=== PATIENT | female | born 1955 | race Caucasian/White ===

== ENCOUNTER 2024-04-06 12:35 | Inpatient (IN) | payer OTHER ==
[~2024-04-06] VITALS: Ht 167.6 cm; Wt 76.9 kg
--- NOTE | 2024-04-06 13:08 | ED.PDOC ---
Musculoskeletal HPI Comments HPI: Poor Historian. 69-year-old female brought in by ambulance from home status post mechanical fall from a standing position. It was a trip and fall. Patient is specifically states she did not have any other trauma or injury to the rest of her body. Patient complains of right hip pain since the fall. Patient denies any pain anywhere else in her body. Patient is not on blood thinners. Patient has history of GERD. Per EMS, patient was noted to have right lower extremity deformity and rotation. She received a total of 200 mics fentanyl prior to arrival. Patient points to her right lateral proximal thigh where her pain is. Past Medcial History: GERD Past Surgical History: Denies any REVIEW OF SYSTEMS: CONSTITUTIONAL: Denies acute: fever, diaphoresis, chills, generalized weakness. HEAD: Denies acute: headache, photophobia Eyes: Denies acute: Double vision, vision loss, eye pain, eye discharge. EARS: Denies acute: tinnitus, hearing loss, ear discharge, ear pain, THROAT: Denies acute: sore throat, swelling, difficulty swallowing , pain with swallowing, change in voice. NECK: Denies acute: neck pain, neck swelling, stiff neck. HEART: Denies acute : chest pain, palpitations, LUNGS: Denies acute: SOB, wheezing, cough, hemoptysis ABDOMEN: Denies acute: abdominal pain, Nausea, Vomiting, diarrhea, melena , hematemesis, hematochezia SKIN: Denies acute: rash, redness, lesions, itchiness. EXTREMITIES: Denies acute: calf pain, numbness, tingling, weakness, Denies acute: Low back pain. Neuro: Denies acute: focal neurological deficit, motor or sensory focal neurological deficit, tremors, seizure like activity, confusion, dizziness, change in mental status, loss of bowel or bladder function, cauda equina like symptoms. : Denies acute: dysuria, hematuria, flank pain, increase in urinary frequency. PSYCH: Denies acute: hallucination, suicidal ideation, homicidal ideation. FEMALE: Denies acute: abnormal vaginal bleeding, foul odor, unusual discharge. PHYSICAL EXAM: General: no acute distress, awake and alert. Head: normocephalic, atraumatic. Neck: supple, trachea is midline, no swelling. Throat: Normal phonation. Eyes:, no erythema, no purulent discharge, no proptosis, no icterus. Heart: regular rate, regular rhythm, no significant murmur appreciated. Lungs: no apparent respiratory distress, Able to speak in full sentences. No wheezing, no rhonchi, no crackles. No stridors Clear to auscultation bilaterally. Abdomen: non tender to palpation, non distended, soft, no guarding, no rebound, + bowel sounds. Neuro: Awake, Alert, oriented to name, self, situation, follows commands GCS=15. Speech is normal. Skin: no petechia, no purpura, no cyanosis, non-pale, not jaundice. Lower extremities: --no - Pitting edema no deformity, no focal swelling, no calf TTP. Decreased range of motion of right lower extremity secondary to right hip pain. Patient is neurovascularly intact in the affected extremity. Pedal pulses palpable. Sensory and motor are present. Makes eye contact. Face: no apparent facial droop. Chief Complaint: Fall Injury Time Seen by MD: 12:54 Reviewed Notes: Nurses Notes, Allergies Allergies: Coded Allergies: NO KNOWN ALLERGIES (Unverified , 04/06/24) Information Source: Patient Mode of Arrival: EMS Location: Right X-Ray, Labs, Meds, VS Vital Signs Date Time Temp Pulse Resp B/P (MAP) Pulse Ox O2 Delivery O2 Flow Rate FiO2 04/06/24 19:20 98.5 86 18 117/70 (86) 100 98.5 04/06/24 19:20 100 Room Air* 0 21 04/06/24 18:11 90 18 115/69 (84) 93 04/06/24 17:56 81 16 142/68 (92) 94 04/06/24 17:52 140/62 04/06/24 16:54 80 18 98 Room Air* 0 21 04/06/24 16:39 80 22 140/80 04/06/24 16:00 98.1 85 17 140/62 (88) 98 98.1 04/06/24 15:17 80 20 122/63 04/06/24 15:00 98.2 85 18 122/63 (82) 97 98.2 04/06/24 12:46 98.9 78 20 139/81 (100) 100 Lab Test 04/06/24 17:15 04/06/24 16:36 04/06/24 13:58 Range/Units Prothrombin Time 10.8 9.3-11.8 sec Prothrombin Time INR 1.02 0.9-1.15 Urine Color Yellow Yellow Urine Clarity Clear Clear Urine pH 6.0 5.0-9.0 Urine Specific [place] 1.021 1.001-1.035 Urine Protein Trace H Negative Urine Ketones Trace Negative Urine Blood Negative Negative /uL Urine Nitrite Negative Negative Urine Bilirubin Negative Negative Urine Urobilinogen Normal Negative mg/dL Urine Leukocyte Esterase Negative Negative /uL Urine RBC 2 0 - 4 /hpf Urine WBC 3 0 - 5 /hpf Urine Squamous Epithelial Cells Few <5 /hpf Urine Bacteria None seen None Seen /hpf Urine Hyaline Casts Few 0 - 2 /lpf Urine Glucose Normal Normal mg/dL White Blood Count 11.2 H 4.4-10.8 10^3/uL Red Blood Count 4.58 4.0-5.20 10^6/uL Hemoglobin 10.6 L 12.2-16.2 g/dL Hematocrit 34.6 L 36.0-46.0 % Mean Corpuscular Volume 75.5 L 80.0-100.0 fL Mean Corpuscular Hemoglobin 23.1 L 28.0-32.0 pg Mean Corpuscular Hemoglobin Concent 30.6 L 32.0-36.0 g/dL Red Cell Distribution Width 18.8 H 11.8-14.3 % Platelet Count 351 140-450 10^3/uL Mean Platelet Volume 7.2 6.9-10.8 fL Neutrophils (%) (Auto) 88.8 H 37.0-80.0 % Lymphocytes (%) (Auto) 5.7 L 10.0-50.0 % Monocytes (%) (Auto) 4.6 0.0-12.0 % Eosinophils (%) (Auto) 0.3 0.0-7.0 % Basophils (%) (Auto) 0.6 0.0-2.0 % Neutrophils # (Auto) 9.9 H 1.6-8.6 10 ^3/uL Lymphocytes # (Auto) 0.6 0.4-5.4 10 ^3/uL Monocytes # (Auto) 0.5 0-1.3 10 ^3/uL Eosinophils # (Auto) 0 0-0.8 10 ^3/uL Basophils # (Auto) 0.1 0-0.2 10 ^3/uL Nucleated Red Blood Cells 0.1 % Sodium Level 141 136-145 mmol/L Potassium Level 3.7 3.5-5.1 mmol/L Chloride Level 109 H 98-107 mmol/L Carbon Dioxide Level 23 20-31 mmol/L Anion Gap 9 5-15 Blood Urea Nitrogen 12 9-23 mg/dL Creatinine 0.72 0.550-1.02 mg/dL Glomerular Filtration Rate Calc 92 >90 mL/min BUN/Creatinine Ratio 16.7 10.0-20.0 Serum Glucose 110 H 74-106 mg/dL Calcium Level 9.6 8.7-10.4 mg/dL Total Bilirubin 0.4 0.2-1.0 mg/dL Aspartate Amino Transferase (AST) 28 13-40 U/L Alanine Aminotransferase (ALT) 31 7-40 U/L Alkaline Phosphatase 115 46-116 U/L Creatine Kinase 327 H 34-145 U/L Total Protein 7.0 5.7-8.2 g/dL Albumin 4.6 3.2-4.8 g/dL Current Medications Medications (Trade) Dose Ordered Sig/Gordon Route Start Time Stop Time Status Last Admin Hydromorphone HCl (Dilaudid Injection) 0.25 mg ONCE ONCE IV 04/06/24 15:00 04/06/24 15:01 DC 04/06/24 15:17 Ondansetron HCl (Zofran) 4 mg ONCE ONCE IM 04/06/24 15:00 04/06/24 15:01 DC 04/06/24 15:16 Fentanyl Citrate 100 mcg ONCE ONCE IV 04/06/24 17:30 04/06/24 17:31 DC 04/06/24 17:52 [place] [address] Ph: [phone] DIAGNOSTIC IMAGING Diagnostic Imaging Report : [id number] Signed PATIENT: LTUHER VILLALTA ACCT: [id number] UNIT: [id number] : 1955 LOC: ER ROOM / BED: / AGE / SEX: 69 / F ADM STATUS: REG ER SERVICE [id number] ORDERING PHYSICIAN: ALISTAIR PITTS DO PROCEDURE(s): ABPL - CT AB PEL WO CON-NO ORAL OR IV REASON: TRAUMA - S/P FALL INJURY ORDER NUMBER(s): [id number], ACCESSION NUMBER(s): [id number] CLINICAL INFORMATION: 69 years old, Female; trauma. Status post fall injury. TECHNIQUE: Axial CT images of the abdomen and pelvis were obtained without IV contrast. Images were obtained with the patient laying on her left side. Coronal and sagittal reformatted images were obtained, reviewed, and stored. Evaluation of the parenchymal organs is limited without IV contrast. Evaluation of the bowel and mesentery is limited without oral contrast. All CT scans at this medical facility are performed using dose modulation techniques as appropriate to a performed exam including the following: Automated exposure control was utilized; adjustment of the MA and/or KV according to patient size; and use of iterative reconstruction technique. CTDIvol = 17.23 mGy DLP = 942.23 mGy-cm COMPARISON: None FINDINGS: Lung bases: Mild atelectasis in the lung bases. Moderate to large hiatal hernia. Liver: Low-attenuation lesion in the anterior aspect of the left hepatic lobe measures up to 2.3 cm in greatest dimension, measuring fluid attenuation, possible cyst, extending adjacent to the fissure of the ligamentum teres. Biliary: No calcified gallstones or biliary ductal dilatation. Spleen: Unremarkable. Pancreas: Grossly unremarkable in its noncontrast enhanced appearance. Adrenal glands: Unremarkable. No mass. Kidneys: No hydronephrosis. No renal or ureteral calculi. Aorta/Vascular: Moderate atherosclerotic calcification. No abdominal aortic aneurysm. Retroperitoneum: No mass or lymphadenopathy. Bowel/mesentery: No small bowel obstruction. No free air or free fluid. Appendix is not visualized. There is colonic diverticulosis with no CT evidence for diverticulitis. Pelvic organs: Grossly unremarkable. Bladder: Unremarkable. No mass. Abdominal wall: No mass or hernia. Bones: Acute, severely comminuted fracture of the right proximal humerus involving the intertrochanteric region. Multilevel chronic appearing compression fractures in the thoracic and lumbar spine, including at T11, L2, and L3. IMPRESSION: 1. Acute, severely comminuted right hip intertrochanteric fracture. 2. Multilevel chronic appearing compression fractures in the thoracolumbar spine. 3. Moderate to large hiatal hernia. 4. Fluid density lesion in the left hepatic lobe, likely cyst. 5. Additional nonacute findings as detailed above ATED BY: GASTON WEST DO DICTATED DATE/TIME: 04/06/241318 SIGNED BY: GASTON WEST DO SIGNED DATE/TIME: 04/06/241318 CC: [address] [id number] Ph: [phone] DIAGNOSTIC IMAGING Diagnostic Imaging Report : [id number] Signed PATIENT: LUTHER CARRERO ACCT: [id number] UNIT: [id number] : 1955 LOC: ER ROOM / BED: / AGE / SEX: 69 / F ADM STATUS: REG ER SERVICE ORDERING PHYSICIAN: DEVIN BRUNO MD PROCEDURE(s): CXR1 - CHEST XRAY 1 VIEW REASON: cad ORDER NUMBER(s): [id number], ACCESSION NUMBER(s): [id number] CHEST RADIOGRAPH Indication: cad Technique: Single frontal view of the chest was obtained Comparison: None Findings/ IMPRESSION: No active cardiopulmonary disease. High density material scattered over the left lower hemithorax and extending into the left upper abdomen. Question whether this is artifact versus densities within the patient. ATED BY: MARCELINO CHAMBERS DO DICTATED DATE/TIME: 04/06/241732 SIGNED BY: MARCELINO CHAMBERS DO SIGNED DATE/TIME: 04/06/241732 CC: Time of 1ST Reevaluation: 13:46 (The case was discussed with the orthopedic on- call team (HPI, physical exam, labs and diagnostic tests that were available at the time of disposition, ED course, treatment plan) on the phone. They recommend admission to the hospital and they will follow in consult. Dr. Bruno) Reevaluation 1ST: Unchanged Patient Education/Counseling: Diagnosis, Treatment Family Education/Counseling: No Family Present Comments Patient presented with the 69-year-old female brought in by ambulance from home status post mechanical fall from a standing position. It was a trip and fall workup was initiated. patient was found with the above mentioned diagnosis. the following medications were ordered: HYDROMORPHONE, ONDANSETRON 4MG, FENTANYL 100MCG the following tests were ordered: LABS, UA, CXR, EKG, CT ABD PEL Patient ED course and VS have been stabilized. Patient has been reassessed in the ED and remained in a stable condition. Pertinent incidental findings were discussed with the patient and/or family. Patient/family voices understanding and is agreeable with plan. Patient has been observed in the ED adequate length of time to insure improvement/stability. Escalation of care considered: Consideration of escalation to observation or admission Patient was ADMITTED to the medicine team for further evaluation and treatment of their presentation. All the reports of any imaging studies that were ordered by myself were reviewed by myself. Departure 1 Departure Time of Disposition: 13:42 Impression: Primary Impression: Hip fracture, right Disposition: 09 ADMITTED INPATIENT Admit to: Tele Condition: Guarded Additional Instructions: [place] [address] Ph: [phone] DIAGNOSTIC IMAGING Diagnostic Imaging Report : [id number] Signed PATIENT: LUTHER VILLALTA ACCT: [id number] UNIT: [id number] : 1955 LOC: ER ROOM / BED: / AGE / SEX: 69 / F ADM STATUS: REG ER SERVICE 1245 ORDERING PHYSICIAN: ALISTAIR PITTS DO PROCEDURE(s): ABPL - CT AB PEL WO CON-NO ORAL OR IV REASON: TRAUMA - S/P FALL INJURY ORDER NUMBER(s): [id number], ACCESSION NUMBER(s): [id number] CLINICAL INFORMATION: 69 years old, Female; trauma. Status post fall injury. TECHNIQUE: Axial CT images of the abdomen and pelvis were obtained without IV contrast. Images were obtained with the patient laying on her left side. Coronal and sagittal reformatted images were obtained, reviewed, and stored. Evaluation of the parenchymal organs is limited without IV contrast. Evaluation of the bowel and mesentery is limited without oral contrast. All CT scans at this medical facility are performed using dose modulation techniques as appropriate to a performed exam including the following: Automated exposure control was utilized; adjustment of the MA and/or KV according to patient size; and use of iterative reconstruction technique. CTDIvol = 17.23 mGy DLP = 942.23 mGy-cm COMPARISON: None FINDINGS: Lung bases: Mild atelectasis in the lung bases. Moderate to large hiatal hernia. Liver: Low-attenuation lesion in the anterior aspect of the left hepatic lobe measures up to 2.3 cm in greatest dimension, measuring fluid attenuation, possible cyst, extending adjacent to the fissure of the ligamentum teres. Biliary: No calcified gallstones or biliary ductal dilatation. Spleen: Unremarkable. Pancreas: Grossly unremarkable in its noncontrast enhanced appearance. Adrenal glands: Unremarkable. No mass. Kidneys: No hydronephrosis. No renal or ureteral calculi. Aorta/Vascular: Moderate atherosclerotic calcification. No abdominal aortic aneurysm. Retroperitoneum: No mass or lymphadenopathy. Bowel/mesentery: No small bowel obstruction. No free air or free fluid. Appendix is not visualized. There is colonic diverticulosis with no CT evidence for diverticulitis. Pelvic organs: Grossly unremarkable. Bladder: Unremarkable. No mass. Abdominal wall: No mass or hernia. Bones: Acute, severely comminuted fracture of the right proximal humerus involving the intertrochanteric region. Multilevel chronic appearing compression fractures in the thoracic and lumbar spine, including at T11, L2, and L3. IMPRESSION: 1. Acute, severely comminuted right hip intertrochanteric fracture. 2. Multilevel chronic appearing compression fractures in the thoracolumbar spine. 3. Moderate to large hiatal hernia. 4. Fluid density lesion in the left hepatic lobe, likely cyst. 5. Additional nonacute findings as detailed above ATED BY: GASTON WEST DO DICTATED DATE/TIME: 04/06/241318 SIGNED BY: AGSTON WEST DO SIGNED DATE/TIME: 04/06/241318 CC: [place] [address] Ph: [phone] DIAGNOSTIC IMAGING Diagnostic Imaging Report : [id number] Signed PATIENT: LUTHER CARRERO ACCT: [id number] UNIT: [id number] : 1955 LOC: ER ROOM / BED: / AGE / SEX: 69 / F ADM STATUS: REG ER SERVICE [id number] ORDERING PHYSICIAN: DEVIN BRUNO MD PROCEDURE(s): CXR1 - CHEST XRAY 1 VIEW REASON: cad ORDER NUMBER(s): [id number], ACCESSION NUMBER(s): [id number] CHEST RADIOGRAPH Indication: cad Technique: Single frontal view of the chest was obtained Comparison: None Findings/ IMPRESSION: No active cardiopulmonary disease. High density material scattered over the left lower hemithorax and extending into the left upper abdomen. Question whether this is artifact versus densities within the patient. ATED BY: MARCELINO CHAMBERS DO DICTATED DATE/TIME: 04/06/241732 SIGNED BY: MARCELINO CHAMBERS DO SIGNED DATE/TIME: 04/06/241732 CC: Discharged With: Self I personally scribed for ALISTAIR PITTS DO ([email or web address]) on 04/06/24 at 22:23. Electronically submitted by Nicolasa Shepherd ([email or web address]). I personally scribed for ALISTAIR PITTS DO ([email or web address]) on 04/06/24 at 22:24. Mariam ctronically submitted by Nicolasa Shepherd ([email or web address]). I personally scribed for ALISTAIR PITTS DO ([email or web address]) on 04/06/24 at 22:25. Electron ically submitted by Nicolasa Shepherd ([email or web address]). I personally scribed for ALISTAIR PITTS DO ([email or web address]) on 04/06/24 at 22:25. Electronically submitted by Nicolasa Shepherd ([email or web address]). ALISTAIR PITTS DO Apr 06, 2024 13:08
--- NOTE | 2024-04-06 13:22 | DVH ---
CLINICAL INFORMATION: 69 years old, Female; trauma. Status post fall injury. TECHNIQUE: Axial CT images of the abdomen and pelvis were obtained without IV contrast. Images were obtained with the patient laying on her left side. Coronal and sagittal reformatted images were obtai rebecca, reviewed, and stored. Evaluation of the parenchymal organs is limited without IV contrast. Evalu ation of the bowel and mesentery is limited without oral contrast. All CT scans at this [facility] are performed using dose modulation techniques as appropriate to a performed exam including the f ollowing: Automated exposure control was utilized; adjustment of the MA and/or KV according to patien t size; and use of iterative reconstruction technique. CTDIvol = 17.23 mGy DLP = 942.23 mGy-cm COMPARISON: None FINDINGS: Lung bases: Mild atelectasis in the lung bases. Moderate to large hiatal hernia. Liver: Low-attenuation lesion in the anterior aspect of the left hepatic lobe measures up to 2.3 cm in greatest dimension, measuring fluid attenuation, possible cyst, extending adjacent to the fissure of the ligamentum teres. Biliary: No calcified gallstones or biliary ductal dilatation. Spleen: Unremarkable. Pancreas: Grossly unremarkable in its noncontrast enhanced appearance. Adrenal glands: Unremarkable. No mass. Kidneys: No hydronephrosis. No renal or ureteral calculi. Aorta/Vascular: Moderate atherosclerotic calcification. No abdominal aortic aneurysm. Retroperitoneum: No mass or lymphadenopathy. Bowel/mesentery: No small bowel obstruction. No free air or free fluid. Appendix is not visualized. T here is colonic diverticulosis with no CT evidence for diverticulitis. Pelvic organs: Grossly unremarkable. Bladder: Unremarkable. No mass. Abdominal wall: No mass or hernia. Bones: Acute, severely comminuted fracture of the right proximal humerus involving the intertrochante blu region. Multilevel chronic appearing compression fractures in the thoracic and lumbar spine, incl uding at T11, L2, and L3. IMPRESSION: 1. Acute, severely comminuted right hip intertrochanteric fracture. 2. Multilevel chronic appearing compression fractures in the thoracolumbar spine. 3. Moderate to large hiatal hernia. 4. Fluid density lesion in the left hepatic lobe, likely cyst. 5. Additional nonacute findings as detailed above
[2024-04-06 14:38] LABS: Alanine Aminotransferase 31 U/L (7-40); Albumin 4.6 g/dL (3.2-4.8); Alkaline Phosphatase 115 U/L (46-116); Anion Gap 9 (5-15); Aspartate Aminotransferase 28 U/L (13-40); BUN/Creatinine Ratio 16.7 (10.0-20.0); Blood Urea Nitrogen 12 mg/dL (9-23); Calcium 9.6 mg/dL (8.7-10.4); Carbon Dioxide 23 mmol/L (20-31); Potassium 3.7 mmol/L (3.5-5.1); Sodium 141 mmol/L (136-145)
[2024-04-06 14:39] LABS: Bilirubin, Total 0.4 mg/dL (0.2-1.0)
[2024-04-06 14:46] LABS: Basophils # (auto) 0.1 10 ^3/uL (0-0.2); Basophils % (auto) 0.6 % (0.0-2.0); Chloride 109 mmol/L (98-107); Creatine Kinase IFCC 327 U/L (34-145); Eosinophils # (auto) 0 10 ^3/uL (0-0.8); Eosinophils % (auto) 0.3 % (0.0-7.0); Glucose 110 mg/dL (74-106); Hematocrit 34.6 % (36.0-46.0); Hemoglobin 10.6 g/dL (12.2-16.2); Lymphocytes # (auto) 0.6 10 ^3/uL (0.4-5.4); Red Cell Distribution Width 18.8 % (11.8-14.3)
[2024-04-06 14:48] LABS: Lymphocytes % (auto) 5.7 % (10.0-50.0); Mean Corpuscular Hemoglobin 23.1 pg (28.0-32.0); Mean Corpuscular Hgb Conc. 30.6 g/dL (32.0-36.0); Mean Corpuscular Volume 75.5 fL (80.0-100.0); Monocytes # (auto) 0.5 10 ^3/uL (0-1.3); Monocytes % (auto) 4.6 % (0.0-12.0); Neutrophils # (auto) 9.9 10 ^3/uL (1.6-8.6); Neutrophils % (auto) 88.8 % (37.0-80.0); Nucleated Red Blood Cells % 0.1 %; Platelet Count (auto) 351 10^3/uL (140-450); Red Blood Cells 4.58 10^6/uL (4.0-5.20); White Blood Cell 11.2 10^3/uL (4.4-10.8)
[2024-04-06] MEDS: ONDANSETRON HCL 4 MG/2 ML VIAL IM ONE (15:16)
[2024-04-06] MEDS: HYDROmorphone HCL 2 MG/ML VL/or syr IV ONE (15:17)
[2024-04-06 16:54] VITALS: PULSE 80; RESP 18; O2SAT 98
[2024-04-06 17:29] LABS: Urine Bacteria None Seen /hpf (None Seen)
--- NOTE | 2024-04-06 17:35 | DVH ---
CHEST RADIOGRAPH Indication: cad Technique: Single frontal view of the chest was obtained Comparison: None Findings/ IMPRESSION: No active cardiopulmonary disease. High density material scattered over the left lower hemithorax an d extending into the left upper abdomen. Question whether this is artifact versus densities within t he patient.
[2024-04-06] MEDS: fentaNYL CITRATE 100 MCG/2 ML VL IV ONE (17:52)
[2024-04-06 17:59] LABS: Urine Blood Negative /uL (Negative); Urine Clarity Clear (Clear); Urine Color Yellow (Yellow); Urine Hyaline Cast FEW /lpf (0 - 2); Urine Protein, UAD TRACE (Negative); Urine Specific Gravity 1.021 (1.001-1.035); Urine Squamous Epithelial Cell FEW /hpf (<5); Urine Urobilinogen Normal (Negative); Urine WBC 3 /hpf (0 - 5)
[2024-04-06 18:17] LABS: INR 1.02 (0.9-1.15); Prothrombin Time 10.8 sec (9.3-11.8)
[2024-04-06 19:20] VITALS: O2SAT 100
[2024-04-06] MEDS: cefTRIAXone 1GM/50ML D5W 50 ML IV ONE (20:30)
[2024-04-06] MEDS ORDERED: ACETAMINOPHEN 325 MG TAB PO PRN (20:30)
[2024-04-06] MEDS ORDERED: DOCUSATE SOD 100 MG CAP PO PRN (20:30)
[2024-04-06] MEDS: SOD CHL 0.45% 1,000 ML IV SCH (20:30)
--- NOTE | 2024-04-06 20:55 | DVHHP2 ---
History of Present Illness Reason for Visit: Hip fracture, right History of Present Illness The patient is a 69 years old female with past medical history of GERD presented to [facility] ED for evaluation of mechanical fall injury. Patient reports she tripped and fall at home, complaining of right hip pain, rating 7/10 numeric scale, getting worse that prompted this visit. Patient was seen and evaluated in the ED, laboratory data shows WBC 11.2, hemoglobin 10.6, hematocrit 34.6, platelets 351, sodium 141, potassium 3.7, BUN 12, creatinine 0.72, GFR 92, glucose 110, CK 327, blood pressure 117/70, heart rate 86, temperature 98.5 F, O2 saturation 99% on oxygen. Abdomen/pelvis CT revealing acute, severe comminuted right hip intratrochanteric fracture. Patient was given IV Dilaudid 0.25 mg x 1, please see medication orders section in the computer. On my assessment, patient denies chest pain, no headache, no dizziness, no diaphoresis, no loss of consciousness, no shortness of breath, no nausea, no vomiting, fever, chills. Patient was admitted for further evaluation and medical management. Past Medical History GERD Past Surgical History Denies all surgeries Family History Reviewed, noncontributory to the management of this case. Past Social History The patient lives at home, denies smoking, alcohol or illicit drugs abuse. Review of Systems Constitutional: Yes: Weakness; No: Fever, Chills, Sweats, Malaise, Other Eyes: No: Pain, Vision change, Conjunctivae inflammation, Eyelid inflammation, Other, Redness ENT: No: Ear pain, Ear discharge, Nose pain, Nose discharge, Nose congestion, Mouth pain, Mouth swelling, Throat pain, Throat swelling, Other Respiratory: No: Cough, Dry, Shortness of breath, SOB with excertion, Wheezing, Hemoptysis, Pleuritic Pain, Sputum, Wheezing, Other Cardiovascular: No: Chest Pain, Palpitations, Orthopnea, Paroxysmal Noc. Dyspnea, Edema, Lt Headedness, Other Gastrointestinal: No: Nausea, Vomiting, Abdominal Pain, Diarrhea, Constipation, Melena, Hematochezia, Other Genitourinary: No Dysuria, No Frequency, No Incontinence, No Hematuria, No Retention, No Other Musculoskeletal: other (Right hip pain), back pain; No: neck pain, shoulder pain, arm pain, hand pain, leg pain, foot pain Skin: No: Rash, Lesions, Jaundice, Bruising, Other Neurological: No: Weakness, Numbness, Incoordination, Change in speech, Confusion, Seizures, Other Allergies: Coded Allergies: NO KNOWN ALLERGIES (Unverified , 04/06/24) Medications Current Medications Medications Dose Ordered Sig/Gordon Route Start Time Stop Time Status Last Admin Dose Admin Ceftriaxone Sodium 50 ml @ 100 mls/hr DAILY@09 IV 04/07/24 09:00 UNV Acetaminophen/ Hydrocodone Bitart 1 tab Q4HP PRN PO 04/06/24 20:30 UNV Ondansetron HCl 4 mg Q4HP PRN IV 04/06/24 20:30 UNV Docusate Sodium 100 mg BIDPRN PRN PO 04/06/24 20:30 UNV Enoxaparin Sodium 40 mg DAILY SC 04/07/24 10:00 UNV Acetaminophen 650 mg Q6HP PRN PO 04/06/24 20:30 UNV Morphine Sulfate 2 mg Q4HPRN PRN IV 04/06/24 20:30 UNV Sodium Chloride 1,000 ml @ 75 mls/hr [id number] IV 04/06/24 20:30 UNV Exam Vital Signs Vital Signs Date Time Temp Pulse Resp B/P (MAP) Pulse Ox O2 Delivery O2 Flow Rate FiO2 04/06/24 19:20 98.5 86 18 117/70 (86) 100 98.5 04/06/24 19:20 Room Air* 0 21 General Appearance: Alert, Oriented X3, Cooperative, No acute distress HEENT: Atraumatic, PERRLA, EOMI, Mucous membr. moist/pink Respiratory: Clear to auscultation, Normal air movement Cardiovascular: Regular rate, Normal S1, Normal S2, No murmurs Abdominal: Normal bowel sounds, Soft, No tenderness, No hepatospenomegaly, No masses Extremities: No clubbing, No cyanosis, No edema, Normal pulses, Other (Right hip tenderness) Skin: No rashes, No breakdown, No significant lesion Neuro: Normal speech, Normal tone, Sensation intact, Cranial nerves 3-12 NL, Reflexes 2+, Other (Generalized weakness) Psych/Mental Status: Mental status NL, Mood NL Labs/Xrays Labs Test 04/06/24 17:15 04/06/24 16:36 04/06/24 13:58 Range/Units Prothrombin Time 10.8 9.3-11.8 sec Prothrombin Time INR 1.02 0.9-1.15 Urine Color Yellow Yellow Urine Clarity Clear Clear Urine pH 6.0 5.0-9.0 Urine Specific [place] 1.021 1.001-1.035 Urine Protein Trace H Negative Urine Ketones Trace Negative Urine Blood Negative Negative /uL Urine Nitrite Negative Negative Urine Bilirubin Negative Negative Urine Urobilinogen Normal Negative mg/dL Urine Leukocyte Esterase Negative Negative /uL Urine RBC 2 0 - 4 /hpf Urine WBC 3 0 - 5 /hpf Urine Squamous Epithelial Cells Few <5 /hpf Urine Bacteria None seen None Seen /hpf Urine Hyaline Casts Few 0 - 2 /lpf Urine Glucose Normal Normal mg/dL White Blood Count 11.2 H 4.4-10.8 10^3/uL Red Blood Count 4.58 4.0-5.20 10^6/uL Hemoglobin 10.6 L 12.2-16.2 g/dL Hematocrit 34.6 L 36.0-46.0 % Mean Corpuscular Volume 75.5 L 80.0-100.0 fL Mean Corpuscular Hemoglobin 23.1 L 28.0-32.0 pg Mean Corpuscular Hemoglobin Concent 30.6 L 32.0-36.0 g/dL Red Cell Distribution Width 18.8 H 11.8-14.3 % Platelet Count 351 140-450 10^3/uL Mean Platelet Volume 7.2 6.9-10.8 fL Neutrophils (%) (Auto) 88.8 H 37.0-80.0 % Lymphocytes (%) (Auto) 5.7 L 10.0-50.0 % Monocytes (%) (Auto) 4.6 0.0-12.0 % Eosinophils (%) (Auto) 0.3 0.0-7.0 % Basophils (%) (Auto) 0.6 0.0-2.0 % Neutrophils # (Auto) 9.9 H 1.6-8.6 10 ^3/uL Lymphocytes # (Auto) 0.6 0.4-5.4 10 ^3/uL Monocytes # (Auto) 0.5 0-1.3 10 ^3/uL Eosinophils # (Auto) 0 0-0.8 10 ^3/uL Basophils # (Auto) 0.1 0-0.2 10 ^3/uL Nucleated Red Blood Cells 0.1 % Sodium Level 141 136-145 mmol/L Potassium Level 3.7 3.5-5.1 mmol/L Chloride Level 109 H 98-107 mmol/L Carbon Dioxide Level 23 20-31 mmol/L Anion Gap 9 5-15 Blood Urea Nitrogen 12 9-23 mg/dL Creatinine 0.72 0.550-1.02 mg/dL Glomerular Filtration Rate Calc 92 >90 mL/min BUN/Creatinine Ratio 16.7 10.0-20.0 Serum Glucose 110 H 74-106 mg/dL Calcium Level 9.6 8.7-10.4 mg/dL Total Bilirubin 0.4 0.2-1.0 mg/dL Aspartate Amino Transferase (AST) 28 13-40 U/L Alanine Aminotransferase (ALT) 31 7-40 U/L Alkaline Phosphatase 115 46-116 U/L Creatine Kinase 327 H 34-145 U/L Total Protein 7.0 5.7-8.2 g/dL Albumin 4.6 3.2-4.8 g/dL PATIENT: LUTHER VILLALTA ACCT: [id number] UNIT: [id number] : 1955 LOC: ER ROOM / BED: / AGE / SEX: 69 / F ADM STATUS: REG ER SERVICE 1245 ORDERING PHYSICIAN: ALISTAIR PITTS DO PROCEDURE(s): ABPL - CT AB PEL WO CON-NO ORAL OR IV REASON: TRAUMA - S/P FALL INJURY ORDER NUMBER(s): [id number], ACCESSION NUMBER(s): [id number] CLINICAL INFORMATION: 69 years old, Female; trauma. Status post fall injury. TECHNIQUE: Axial CT images of the abdomen and pelvis were obtained without IV contrast. Images were obtained with the patient laying on her left side. Coronal and sagittal reformatted images were obtained, reviewed, and stored. Evaluation of the parenchymal organs is limited without IV contrast. Evaluation of the bowel and mesentery is limited without oral contrast. All CT scans at this medical facility are performed using dose modulation techniques as appropriate to a performed exam including the following: Automated exposure control was utilized; adjustment of the MA and/or KV according to patient size; and use of iterative reconstruction technique. CTDIvol = 17.23 mGy DLP = 942.23 mGy-cm COMPARISON: None FINDINGS: Lung bases: Mild atelectasis in the lung bases. Moderate to large hiatal hernia. Liver: Low-attenuation lesion in the anterior aspect of the left hepatic lobe measures up to 2.3 cm in greatest dimension, measuring fluid attenuation, possible cyst, extending adjacent to the fissure of the ligamentum teres. Biliary: No calcified gallstones or biliary ductal dilatation. Spleen: Unremarkable. Pancreas: Grossly unremarkable in its noncontrast enhanced appearance. Adrenal glands: Unremarkable. No mass. Kidneys: No hydronephrosis. No renal or ureteral calculi. Aorta/Vascular: Moderate atherosclerotic calcification. No abdominal aortic aneurysm. Retroperitoneum: No mass or lymphadenopathy. Bowel/mesentery: No small bowel obstruction. No free air or free fluid. Appendix is not visualized. There is colonic diverticulosis with no CT evidence for dive rticulitis. Pelvic organs: Grossly unremarkable. Bladder: Unremarkable. No mass. Abdominal wall: No mass or hernia. Bones: Acute, severely comminuted fracture of the right proximal humerus involving the intertrochanteric region. Multilevel chronic appearing compression fractures in the thoracic and lumbar spine, including at T11, L2, and L3. IMPRESSION: 1. Acute, severely comminuted right hip intertrochanteric fracture. 2. Multilevel chronic appearing compression fractures in the thoracolumbar spine. 3. Moderate to large hiatal hernia. 4. Fluid density lesion in the left hepatic lobe, likely cyst. 5. Additional nonacute findings as detailed above ORDERING PHYSICIAN: DEVIN BRUNO MD PROCEDURE(s): CXR1 - CHEST XRAY 1 VIEW REASON: cad ORDER NUMBER(s): [id number], ACCESSION NUMBER(s): [id number] CHEST RADIOGRAPH Indication: cad Technique: Single frontal view of the chest was obtained Comparison: None Findings/ IMPRESSION: No active cardiopulmonary disease. High density material scattered over the left lower hemithorax and extending into the left upper abdomen. Question whether this is artifact versus densities within the patient. Assessment/Plan Assessment/Plan Fall with injury Hip fracture, right Right hip pain Generalized weakness Leukocytosis, unspecified Plan 1. Admit to telemetry unit 2. Breathing treatment 3. Pain control management 4. IV antibiotic management 5. Management of fluids and electrolytes 6. Consultation for orthopedic surgery 7. Diagnostic test abdomen/pelvis CT 8. DVT prophylaxis-on Lovenox 9. Repeat labs CBC, CMP in a.m. 10. Home medication reviewed and reconciled 11. Continue with current medical management 12. Treatment plan discussed with patient and RN. Patient verbalized understanding. Plan discussed with: Patient, Other (RN) My Orders Orders - YUAN CARRINGTON DNP Procedure Category Date Status Time Ceftriaxone 1gm/50ml PHA 04/07/24 Logged D5w (Rocephin) 09:00 Ceftriaxone 1gm/50ml PHA 04/06/24 Logged D5w (Rocephin) 20:30 Allergies TRINO 04/06/24 In Process 20:28 Code Status CODE 04/06/24 Transmitted 20:28 Oxygen Per Hour RT 04/06/24 Transmitted 20:28 Hydrocodone-Acet PHA 04/06/24 Logged 5/325mg Tab ([place] 20:30 Ondansetron Hcl PHA 04/06/24 Logged (Zofran) 20:30 Docusate Sodium PHA 04/06/24 Logged Capsule (Colace 20:30 Enoxaparin Sodium PHA 04/07/24 Logged (Lovenox) 10:00 Fall Risk Precautions TRINO 04/06/[address] 20:28 Complete Blood Count LAB 04/07/24 Verified 04:00 Comprehensive LAB 04/07/24 Verified Metabolic Panel 04:00 Cardiac DIET 04/07/24 Transmitted Diet-2gna,Lofat,Lochol Breakfast Condition: Serious TRINO 04/06/24 In Process 20:28 Acetaminophen Tablet PHA 04/06/24 Logged (Tylenol Tablet) 20:30 Morphine Sulfate PHA 04/06/24 Logged Injection 20:30 Sequential TRINO 04/06/24 In Process Compression Device Sod Chl 0.45% (Sodium PHA 04/06/24 Logged Chloride 0.45% Via 20:30 Admit ADMIT 04/06/24 Verified 20:54 Nitroglycerin PHA 04/06/24 Verified Sublingual (Ntrostat 21:00 Morphine Sulfate PHA 04/06/24 Verified Injection 21:00 Notify Of Changes TRINO 04/06/24 Verified From Base 20:54 Inside Sales Account Manager For TRINO 04/06/24 Verified 24 Hours 20:54 Emergency Dysrhythmia TRINO 04/06/24 Verified Protocol 20:54 Rhythm Strips Once TRINO 04/06/24 Verified Every Shift 20:54 Oxygen By Nasal RT 04/06/24 Verified Cannula 20:54 Problem List: (1) Fall with injury (2) Hip fracture, right (3) Right hip pain (4) Generalized weakness (5) Leukocytosis, unspecified Date of Service: Apr 06, 2024 Billing Provider: YUAN CARRINGTON DNP Common Visit Codes: [id number] INP/OBS CARE (HIGH) YUAN CARRINGTON DNP Apr 06, 2024 20:55
[2024-04-06] MEDS ORDERED: MORPHINE SULFATE INJ 2 MG/ml SYRG IV PRN (21:00)
[2024-04-06] MEDS ORDERED: NITROGLYCERIN 0.4 MG SL TAB SL PRN (21:00)
[2024-04-06] MEDS: MORPHINE SULFATE INJ 2 MG/ml SYRG IV PRN (22:28)
[2024-04-07] VITALS (9 sets, daily range): BP systolic 117–145; BP diastolic 60–77; PULSE 65–95; RESP 16–22; TEMP 97.9–98.6; O2SAT 92–100
[2024-04-07] MEDS: ONDANSETRON HCL 4 MG/2 ML VIAL IV PRN (03:51)
[2024-04-07 08:32] LABS: Basophils # (auto) 0 10 ^3/uL (0-0.2); Eosinophils # (auto) 0.1 10 ^3/uL (0-0.8); Lymphocytes # (auto) 0.8 10 ^3/uL (0.4-5.4); Monocytes # (auto) 0.6 10 ^3/uL (0-1.3); Platelet Count (auto) 273 10^3/uL (140-450); White Blood Cell 5.9 10^3/uL (4.4-10.8)
[2024-04-07 08:34] LABS: Basophils % (auto) 0.6 % (0.0-2.0); Eosinophils % (auto) 1.7 % (0.0-7.0); Hematocrit 32.2 % (36.0-46.0); Hemoglobin 10.1 g/dL (12.2-16.2); Lymphocytes % (auto) 13.7 % (10.0-50.0); Mean Corpuscular Hemoglobin 23.3 pg (28.0-32.0); Mean Corpuscular Hgb Conc. 31.4 g/dL (32.0-36.0); Mean Corpuscular Volume 74.3 fL (80.0-100.0); Monocytes % (auto) 10.2 % (0.0-12.0); Neutrophils # (auto) 4.3 10 ^3/uL (1.6-8.6); Neutrophils % (auto) 73.8 % (37.0-80.0); Red Blood Cells 4.34 10^6/uL (4.0-5.20); Red Cell Distribution Width 18.7 % (11.8-14.3)
[2024-04-07 08:41] LABS: Alanine Aminotransferase 25 U/L (7-40); Albumin 4.2 g/dL (3.2-4.8); Alkaline Phosphatase 115 U/L (46-116); Anion Gap 6 (5-15); Aspartate Aminotransferase 21 U/L (13-40); BUN/Creatinine Ratio 15.1 (10.0-20.0); Blood Urea Nitrogen 11 mg/dL (9-23); Calcium 9.4 mg/dL (8.7-10.4); Carbon Dioxide 27 mmol/L (20-31); Chloride 105 mmol/L (98-107); Potassium 3.8 mmol/L (3.5-5.1); Sodium 138 mmol/L (136-145)
[2024-04-07 08:42] LABS: Bilirubin, Total 0.6 mg/dL (0.2-1.0); Total Protein 6.5 g/dL (5.7-8.2)
[2024-04-07 08:46] LABS: Glucose 109 mg/dL (74-106)
[2024-04-07] MEDS: cefTRIAXone 1GM/50ML D5W 50 ML IV SCH (09:48)
[2024-04-07] MEDS: ENOXAPARIN SOD 40 MG/0.4 ML SYRINGE SC SCH (09:57)
--- NOTE | 2024-04-07 12:36 | DVHINCON2 ---
Date Seen: Apr 07, 2024 Referring Physician MD Donny Reason for Consultation Cardiac risk stratification History of Present Illness This is a 69-year-old female patient who presents to emergency room status post mechanical fall at home. The patient reports that she was outside with her dog when suddenly her dog became hyperactive causing her to lose her balance and fall. She began experiencing excruciating pain to her right hip. She denies any loss of consciousness hitting her head. She was brought to the emergency room for further evaluation. Imaging has revealed an acute severely comminuted right hip intertrochanteric fracture. Cardiology has now been consulted for cardiac risk stratification. No twelve lead electrocardiogram found in patient's chart. Twelve lead electrocardiogram done at time of assessment reveals normal sinus rhythm with PAC no significant ST segment changes. Significant past medical history includes CVA without residual deficits, kidney stones, and GERD. The patient denies any previous cardiac history. Past Medical History Past medical history reviewed. No other significant than mentioned above. Past Surgical History Denies all previous surgeries Family History Family history reviewed. Social History Denies the use of tobacco, alcohol or illicit drugs. Allergies: Coded Allergies: NO KNOWN ALLERGIES (Unverified , 04/06/24) Home Meds Unable to Obtain Active Prescriptions or Reported Meds Home Meds Home medications reviewed. Current Medications Current Medications Medications (Trade) Dose Ordered Sig/Gordon Route PRN Reason Start Time Stop Time Status Last Admin Ceftriaxone Sodium 50 ml @ 100 mls/hr DAILY@09 IV 04/07/24 09:00 04/07/24 09:48 Acetaminophen/ Hydrocodone Bitart (Artemus 5/325MG Tab) 1 tab Q4HP PRN PO MODERATE PAIN (4-6 PAIN SCALE) 04/06/24 20:30 Ondansetron HCl (Zofran) 4 mg Q4HP PRN IV NAUSEA / VOMITING 04/06/24 20:30 04/07/24 03:51 Docusate Sodium (Colace Capsule) 100 mg BIDPRN PRN PO FOR CONSTIPATION 04/06/24 20:30 Enoxaparin Sodium (Lovenox) 40 mg DAILY SC 04/07/24 10:00 Acetaminophen (Tylenol Tablet) 650 mg Q6HP PRN PO PAIN SCALE 1-3 OR TEMP>100.4 04/06/24 20:30 Morphine Sulfate 2 mg Q4HPRN PRN IV SEVERE PAIN (7-10 PAIN SCALE) 04/06/24 20:30 04/07/24 09:51 Sodium Chloride 1,000 ml @ 75 mls/hr [id number] IV 04/06/24 20:30 04/06/24 20:30 Nitroglycerin (Ntrostat Sublingual) 0.4 mg Q5MINP PRN SL FOR CHEST PAIN 04/06/24 21:00 Morphine Sulfate 2 mg Q30M PRN IV FOR CHEST PAIN 04/06/24 21:00 Review of Systems Constitutional: No symptom reported Ears, Nose, & Throat: No symptom reported Eyes: No symptom reported Neurological: No symptoms reported Pulmonary/Respiratory: No symptoms reported Cardiovascular: No symptom reported Gastrointestinal: No symptom reported Genitourinary: No symptom reported Musculoskeletal: Right hip pain Skin: No symptom reported Psychiatric: No symptom reported Endocrine: No symptom reported Hematologic/Lymphatic: No symptom reported Vital Signs Vital Signs Date Time Temp Pulse Resp B/P (MAP) Pulse Ox O2 Delivery O2 Flow Rate FiO2 04/07/24 09:51 65 18 126/69 04/07/24 09:00 97.9 97 97.9 04/07/24 08:00 Nasal Cannula* 2 28 Physical Exam General Appearance: Cooperative. Well-developed. Well-nourished. No acute distress. Pulmonary/Respiratory: Clear, bilateral breaths sounds. Cardiovascular/Chest: Regular rate and rhythm. Peripheral Pulses: 2+ Radial (R). 2+ Radial (L). 2+ Pedal (R). 2+ Pedal (L) Abdominal Exam: Normal bowel sounds. Ankle Exam: Negative ankle edema Lower extremities: Negative lower extremity edema Neuro/Mental Status: A/OX4, coherent. Thoughts/Psych: Normal thought pattern. Appropriate mood and affect. Good judgment and insight. Appearance: No acute distress. Skin Exam: Normal inspection. Normal color. Warm and dry. Labs/Diagnostic Data Labs Test 04/07/24 08:09 04/06/24 17:15 04/06/24 16:36 04/06/24 13:58 Range/Units White Blood Count 5.9 # 4.4-10.8 10^3/uL Red Blood Count 4.34 4.0-5.20 10^6/uL Hemoglobin 10.1 L 12.2-16.2 g/dL Hematocrit 32.2 L 36.0-46.0 % Mean Corpuscular Volume 74.3 L 80.0-100.0 fL Mean Corpuscular Hemoglobin 23.3 L 28.0-32.0 pg Mean Corpuscular Hemoglobin Concent 31.4 L 32.0-36.0 g/dL Red Cell Distribution Width 18.7 H 11.8-14.3 % Platelet Count 273 140-450 10^3/uL Mean Platelet Volume 6.8 L 6.9-10.8 fL Neutrophils (%) (Auto) 73.8 37.0-80.0 % Lymphocytes (%) (Auto) 13.7 10.0-50.0 % Monocytes (%) (Auto) 10.2 0.0-12.0 % Eosinophils (%) (Auto) 1.7 0.0-7.0 % Basophils (%) (Auto) 0.6 0.0-2.0 % Neutrophils # (Auto) 4.3 1.6-8.6 10 ^3/uL Lymphocytes # (Auto) 0.8 0.4-5.4 10 ^3/uL Monocytes # (Auto) 0.6 0-1.3 10 ^3/uL Eosinophils # (Auto) 0.1 0-0.8 10 ^3/uL Basophils # (Auto) 0 0-0.2 10 ^3/uL Nucleated Red Blood Cells 0.0 % Sodium Level 138 136-145 mmol/L Potassium Level 3.8 3.5-5.1 mmol/L Chloride Level 105 98-107 mmol/L Carbon Dioxide Level 27 20-31 mmol/L Anion Gap 6 5-15 Blood Urea Nitrogen 11 9-23 mg/dL Creatinine 0.73 0.550-1.02 mg/dL Glomerular Filtration Rate Calc 90 >90 mL/min BUN/Creatinine Ratio 15.1 10.0-20.0 Serum Glucose 109 H 74-106 mg/dL Calcium Level 9.4 8.7-10.4 mg/dL Total Bilirubin 0.6 0.2-1.0 mg/dL Aspartate Amino Transferase (AST) 21 13-40 U/L Alanine Aminotransferase (ALT) 25 7-40 U/L Alkaline Phosphatase 115 46-116 U/L Total Protein 6.5 5.7-8.2 g/dL Albumin 4.2 3.2-4.8 g/dL Prothrombin Time 10.8 9.3-11.8 sec Prothrombin Time INR 1.02 0.9-1.15 Urine Color Yellow Yellow Urine Clarity Clear Clear Urine pH 6.0 5.0-9.0 Urine Specific [place] 1.021 1.001-1.035 Urine Protein Trace H Negative Urine Ketones Trace Negative Urine Blood Negative Negative /uL Urine Nitrite Negative Negative Urine Bilirubin Negative Negative Urine Urobilinogen Normal Negative mg/dL Urine Leukocyte Esterase Negative Negative /uL Urine RBC 2 0 - 4 /hpf Urine WBC 3 0 - 5 /hpf Urine Squamous Epithelial Cells Few <5 /hpf Urine Bacteria None seen None Seen /hpf Urine Hyaline Casts Few 0 - 2 /lpf Urine Glucose Normal Normal mg/dL Creatine Kinase 327 H 34-145 U/L Assessment Preprocedural cardiovascular examination Acute severely comminuted right hip intertrochanteric fracture History of CVA without residual deficit GERD Plan/Recommendation We will continue with the following plan/recommendations (Dr. Diamond): Transthoracic echocardiogram reveals normal left ventricle size with EF 55-60% and normal wall motion. Chest x-ray shows no active cardiopulmonary disease. Revised cardiac risk index (Josh criteria): 1 point (6.0% risk of major cardiac event). The patient has no cardiac contraindications to proceed with procedure at this time. Cardiac symptoms have been ruled out. There is no underlying history of congestive heart failure, coronary artery disease, or equivalent of cardiac symptoms. Prior to admission, the patient reports a good functional capacity. Per Cardiology standpoint, the patient is at an acceptable risk for moderate risk surgery. There is no additional cardiac workup indicated prior to surgery. Thank you for allowing us to care for this patient. Please call with any questions or concerns. Critical care time spent: 39 minutes This medical document was created using an electronic medical record system with voice recognition software and computerized dictation system. Although this document has been carefully reviewed, there might still be some phonetic and typographical errors. Occasional wrong-word or ``sound-alike substitutions may have occurred due to the inherent limitations of voice recognition software. These areas are purely typographical due to imperfections of the software programs and do not reflect any compromise in the patient's medical care. Please read the chart carefully and recognize, using context, where these substi tutions have occurred. Plan discussed with: Patient Date of Service: Apr 07, 2024 Billing Provider: JENNY BERMAN Cardiology Common Codes: [id number] INP/OBS CARE (High) Cardiology Consultation Codes: [id number] CONSULT <45MIN JENNY BERMAN Apr 07, 2024 12:36
--- NOTE | 2024-04-07 15:40 | DVHSR ---
APPROVED REPORT EXAM: Two-dimensional and M-mode echocardiogram with Doppler and color Doppler. Blood Pressure: 117/60 mmHg INDICATION CAD RISK FACTORS Height: 5'6", Weight: 167 DIMENSIONS LVDd3.9 (3.8-5.7cm)LA (2D)4.9 (1.9-4.0cm)Aortic Root3.2 (2.0-3.7cm) LVDs2.8 (2.5-4.0cm)LA (MM) (1.9-4.0cm)Aortic Cusp Exc1.6 (1.5-2.0cm) EF (%) 55.0 (55-70%)Rt. Atrium4.9 (1.9-4.0cm)Asc. Aorta cm IVSd0.9 (0.7-1.1cm)RV (D) (1.8-2.4cm) PWd0.9 (0.7-1.1cm) Mitral Valve MitralMitral Stenosis E wave0.94m/sMV Mean GR.mmHg A wave1.25m/sMV Peak GR.mmHg E/A ratio0.82D MVAcm2 DECEL [id number] 1/2 Timems Aortic Valve Aortic ValveAortic Stenosis V10.94m/Sally Mean GR.7mmHg V21.83m/Sally Peak GR.13mmHg LVOT Diameter2.0 (1.8-2.4cm)Doppler AVA1.61cm2 Pulmonic Valve V21.49m/s Tricuspid Valve TR Velocity2.39m/s [id number] LEFT VENTRICLE The left ventricle is normal size. There is normal left ventricular wall thickness. The left ventricle is normal in structure and function. The Ejection Fraction is 55-60%. Normal diastolic function. Normal wall motion. RIGHT VENTRICLE The right ventricle is normal size. The right ventricular systolic function is normal. ATRIA The left atrium is mildly dilated. The right atrium size is normal. MITRAL VALVE The mitral valve is normal in structure and function. Mitral regurgitation is trace to mild. PULMONIC VALVE The pulmonic valve is normal in structure and function. There is trace pulmonic valvular regurgitation. TRICUSPID VALVE The tricuspid valve is grossly normal. There is trace to mild tricuspid regurgitation. AORTIC VALVE The aortic valve is trileaflet. The aortic valve opens well. No aortic regurgitation is present. No evidence of aortic valve stenosis. GREAT VESSELS The aortic root is normal size. PERICARDIAL EFFUSION The pericardium appears normal. There is no pleural effusion. Other Information Technically limited study due to body habitus, patient lying flat. Conclusion The left ventricle is normal size. There is normal left ventricular wall thickness. The left ventricl e is normal in structure and function, Ejection Fraction is 55-60%. Normal wall motion. Normal diast olic function The right ventricular systolic function is normal. The left atrium is mildly dilated. No significant valvular abnormalities. No pericardial effusion.
[2024-04-07] MEDS: PANTOPRAZOLE 40 MG/10 ML VIAL INJ IV ONE (18:09)
--- NOTE | 2024-04-07 23:47 | DVHPN2 ---
Subjective Update 04/07 patient continues to have mild pain, she was more comfortable staying immobilized bed. We will continue p.r.n. analgesia Reviewed: H&P Changes from previous H/P or p: No Changes General: Per HPI Objective Vitals Vital Signs Date Time Temp Pulse Resp B/P (MAP) Pulse Ox O2 Delivery O2 Flow Rate FiO2 04/07/24 21:00 98.0 95 18 119/66 (83) 99 98.0 04/07/24 20:00 Nasal Cannula* 2 28 Intake/Output Intake and Output 04/07/24 07:00 Intake Total 0 ml Output Total 500 ml Balance -500 ml Intake Oral 0 ml Output Urine Total 500 ml Exam GEN: Healthy appearing, well-developed, mild distress HEENT: NC/AT; MMM. CV: RRR, no m/r/g. LUNGS bibasilar rales ABD: Soft, NT/ND, NBS, no masses or organomegaly. EXT: Significant pain at palpation of right GT region, decreased and painful range of motion of right leg/right hip NEURO: Ambulating with no limitations. No focal deficits. Medications Current Medications Medications Dose Ordered Sig/Gordon Route Start Time Stop Time Status Last Admin Dose Admin Ceftriaxone Sodium 50 ml @ 100 mls/hr DAILY@09 IV 04/07/24 09:00 04/07/24 09:48 100 MLS/HR Acetaminophen/ Hydrocodone Bitart 1 tab Q4HP PRN PO 04/06/24 20:30 Ondansetron HCl 4 mg Q4HP PRN IV 04/06/24 20:30 04/07/24 03:51 4 MG Docusate Sodium 100 mg BIDPRN PRN PO 04/06/24 20:30 Enoxaparin Sodium 40 mg DAILY SC 04/07/24 10:00 Acetaminophen 650 mg Q6HP PRN PO 04/06/24 20:30 Morphine Sulfate 2 mg Q4HPRN PRN IV 04/06/24 20:30 04/07/24 16:00 2 MG Sodium Chloride 1,000 ml @ 75 mls/hr [id number] IV 04/06/24 20:30 04/07/24 18:12 75 MLS/HR Nitroglycerin 0.4 mg Q5MINP PRN SL 04/06/24 21:00 Morphine Sulfate 2 mg Q30M PRN IV 04/06/24 21:00 Pantoprazole Sodium 40 mg DAILY IV 04/08/24 10:00 Laboratory Results Laboratory Tests 04/07/24 08:09 Chemistry Test 04/07/24 08:09 Albumin 4.2 g/dL (3.2-4.8) Calcium Level 9.4 mg/dL (8.7-10.4) Total Protein 6.5 g/dL (5.7-8.2) LFT Test 04/07/24 08:09 Alanine Aminotransferase (ALT) 25 U/L (7-40) Alkaline Phosphatase 115 U/L (46-116) Aspartate Amino Transferase (AST) 21 U/L (13-40) Total Bilirubin 0.6 mg/dL (0.2-1.0) Urinalysis Test 04/06/24 16:36 Urine Color Yellow (Yellow) Urine Clarity Clear (Clear) Urine pH 6.0 (5.0-9.0) Urine Specific [place] 1.021 (1.001-1.035) Urine Protein Trace (Negative) H Urine Ketones Trace (Negative) Urine Blood Negative /uL (Negative) Urine Nitrite Negative (Negative) Urine Bilirubin Negative (Negative) Urine Urobilinogen Normal mg/dL (Negative) Urine Leukocyte Esterase Negative /uL (Negative) Urine RBC 2 /hpf (0 - 4) Urine WBC 3 /hpf (0 - 5) Urine Squamous Epithelial Cells Few /hpf (<5) Urine Bacteria None seen /hpf (None Seen) Urine Hyaline Casts Few /lpf (0 - 2) Urine Glucose Normal mg/dL (Normal) Labs and/or images reviewed: Labs reviewed by me, Image(s) reviewed by me Assessment/Plan Assessment/Plan Update 04/07 patient continues to have mild pain, she was more comfortable staying immobilized bed. We will continue p.r.n. analgesia #comminuted right hip intertrochanteric fracture #compression fractures in the thoracolumbar spine - patient with acute full from interacting with her dog - patient presenting with right-sided flank/hip pain, CT abdomen showing fracture in right hip - consulted ortho, NPO midnight with plans surgery for Saturday 04/08 -pain control p.r.n. -DVT prophylaxis, PT after surgery. #large hiatal hernia. - f/u surgery outpatient #left hepatic lobe, likely cyst Diet regular DVT prophylaxis Lovenox GI prophylaxis Protonix IV daily Med surge Full code Plan discussed with: Patient My Orders Orders - LISA SUMMERS MD Procedure Category Date Status Time Pantoprazole PHA 04/08/24 In Process (Protonix) 10:00 Date of Service: Apr 07, 2024 Billing Provider: LISA SUMMERS MD Common Visit Codes: [id number] INP/OBS CARE(HIGH) LISA SUMMERS MD Apr 07, 2024 23:47
[2024-04-08] VITALS (8 sets, daily range): BP systolic 114–149; BP diastolic 65–87; PULSE 74–99; RESP 17–20; TEMP 97.7–98.8; O2SAT 94–99
[2024-04-08 07:46] LABS: Basophils # (auto) 0.1 10 ^3/uL (0-0.2); Basophils % (auto) 0.7 % (0.0-2.0); Eosinophils # (auto) 0.1 10 ^3/uL (0-0.8); Eosinophils % (auto) 1.8 % (0.0-7.0); Hematocrit 30.7 % (36.0-46.0); Lymphocytes % (auto) 14.5 % (10.0-50.0); Mean Corpuscular Hgb Conc. 32.7 g/dL (32.0-36.0); Mean Corpuscular Volume 73.5 fL (80.0-100.0); Monocytes # (auto) 0.9 10 ^3/uL (0-1.3); Monocytes % (auto) 13.1 % (0.0-12.0); Neutrophils # (auto) 4.9 10 ^3/uL (1.6-8.6); Neutrophils % (auto) 69.9 % (37.0-80.0); Platelet Count (auto) 244 10^3/uL (140-450); Red Blood Cells 4.18 10^6/uL (4.0-5.20); Red Cell Distribution Width 18.7 % (11.8-14.3)
[2024-04-08 07:57] LABS: Alanine Aminotransferase 18 U/L (7-40); Alkaline Phosphatase 104 U/L (46-116); Anion Gap 7 (5-15); Aspartate Aminotransferase 14 U/L (13-40); BUN/Creatinine Ratio 12.5 (10.0-20.0); Bilirubin, Total 0.5 mg/dL (0.2-1.0); Calcium 9.3 mg/dL (8.7-10.4); Carbon Dioxide 26 mmol/L (20-31); Chloride 103 mmol/L (98-107); Creatine Kinase IFCC 112 U/L (34-145); Glucose 104 mg/dL (74-106); Potassium 3.7 mmol/L (3.5-5.1); Sodium 136 mmol/L (136-145); Total Protein 6.2 g/dL (5.7-8.2)
[2024-04-08 08:02] LABS: Blood Urea Nitrogen 8 mg/dL (9-23)
--- NOTE | 2024-04-08 08:44 | ECG ---
[facility] Test Date: 2024-04-07 Test Time: 11:46:36 Pat Name: LUTHER CARRERO Department: Respiratoy Room: 0292T A Gender: F [employer] Stack Software Developer: : 1955 Requested By: JENNY BERMAN Order Number: [id number] Reading MD: Measurements Intervals [place] Rate: 79 P: 52 PA: 155 QRS: 15 QRSD: 75 T: 40 QT: 398 QTc: 457 Interpretive Statements Sinus rhythm Atrial premature complex Left atrial enlargement Probable left ventricular hypertrophy Please click the below link to view image of tracing.
[2024-04-08] MEDS: PANTOPRAZOLE 40 MG/10 ML VIAL INJ IV SCH (08:55)
[2024-04-08] MEDS: HYDROcodone-ACET 5/325MG TAB PO PRN (12:46)
--- NOTE | 2024-04-08 15:14 | DVHPN2 ---
Subjective Update 04/08-hemoglobin stable pain is controlled with p.r.n. analgesics. Patient is alert and oriented times 3-4. Bibasilar rales. Concern for atelectasis. We will get incentive spirometry to patient so we can avoid complications. Plan for OR tomorrow Tuesday04/09/202404/07 patient continues to have mild pain, she was more comfortable staying immobilized bed. We will continue p.r.n. analgesia Reviewed: H&P Changes from previous H/P or p: No Changes, Changes General: Per HPI Objective Vitals Vital Signs Date Time Temp Pulse Resp B/P (MAP) Pulse Ox O2 Delivery O2 Flow Rate FiO2 04/08/24 13:00 98.5 92 17 126/73 (90) 96 98.5 04/08/24 08:00 Nasal Cannula* 2 28 Intake/Output Intake and Output 04/08/24 07:00 Intake Total 1100 ml Output Total 1200 ml Balance -100 ml Intake Oral 1050 ml IV Total 50 ml Output Urine Total 1200 ml Exam GEN: Healthy appearing, well-developed, mild distress HEENT: NC/AT; MMM. CV: RRR, no m/r/g. LUNGS bibasilar rales ABD: Soft, NT/ND, NBS, no masses or organomegaly. EXT: Significant pain at palpation of right GT region, decreased and painful range of motion of right leg/right hip NEURO: Ambulating with no limitations. No focal deficits. Medications Current Medications Medications Dose Ordered Sig/Gordon Route Start Time Stop Time Status Last Admin Dose Admin Ceftriaxone Sodium 50 ml @ 100 mls/hr DAILY@09 IV 04/07/24 09:00 04/08/24 08:56 100 MLS/HR Acetaminophen/ Hydrocodone Bitart 1 tab Q4HP PRN PO 04/06/24 20:30 04/08/24 12:46 1 TAB Ondansetron HCl 4 mg Q4HP PRN IV 04/06/24 20:30 04/07/24 03:51 4 MG Docusate Sodium 100 mg BIDPRN PRN PO 04/06/24 20:30 Enoxaparin Sodium 40 mg DAILY SC 04/07/24 10:00 04/08/24 08:56 40 MG Acetaminophen 650 mg Q6HP PRN PO 04/06/24 20:30 Morphine Sulfate 2 mg Q4HPRN PRN IV 04/06/24 20:30 04/08/24 09:06 2 MG Sodium Chloride 1,000 ml @ 75 mls/hr [id number] IV 04/06/24 20:30 04/07/24 18:12 75 MLS/HR Nitroglycerin 0.4 mg Q5MINP PRN SL 04/06/24 21:00 Morphine Sulfate 2 mg Q30M PRN IV 04/06/24 21:00 Pantoprazole Sodium 40 mg DAILY IV 04/08/24 10:00 04/08/24 08:55 40 MG Laboratory Results Laboratory Tests 04/08/24 07:02 Chemistry Test 04/08/24 07:02 Albumin 4.0 g/dL (3.2-4.8) Calcium Level 9.3 mg/dL (8.7-10.4) Total Protein 6.2 g/dL (5.7-8.2) LFT Test 04/08/24 07:02 Alanine Aminotransferase (ALT) 18 U/L (7-40) Alkaline Phosphatase 104 U/L (46-116) Aspartate Amino Transferase (AST) 14 U/L (13-40) Total Bilirubin 0.5 mg/dL (0.2-1.0) Urinalysis Test 04/06/24 16:36 Urine Color Yellow (Yellow) Urine Clarity Clear (Clear) Urine pH 6.0 (5.0-9.0) Urine Specific [place] 1.021 (1.001-1.035) Urine Protein Trace (Negative) H Urine Ketones Trace (Negative) Urine Blood Negative /uL (Negative) Urine Nitrite Negative (Negative) Urine Bilirubin Negative (Negative) Urine Urobilinogen Normal mg/dL (Negative) Urine Leukocyte Esterase Negative /uL (Negative) Urine RBC 2 /hpf (0 - 4) Urine WBC 3 /hpf (0 - 5) Urine Squamous Epithelial Cells Few /hpf (<5) Urine Bacteria None seen /hpf (None Seen) Urine Hyaline Casts Few /lpf (0 - 2) Urine Glucose Normal mg/dL (Normal) Labs and/or images reviewed: Labs reviewed by me, Image(s) reviewed by me Assessment/Plan Assessment/Plan Update 04/08-hemoglobin stable pain is controlled with p.r.n. analgesics. Patient is alert and oriented times 3-4. Bibasilar rales. Concern for atelectasis. We will get incentive spirometry to patient so we can avoid complications. Plan for OR tomorrow Tuesday04/09/2024 #comminuted right hip intertrochanteric fracture #compression fractures in the thoracolumbar spine - patient with acute full from interacting with her dog - patient presenting with right-sided flank/hip pain, CT abdomen showing fracture in right hip - consulted ortho, NPO midnight with plans surgery for Saturday 04/08 -pain control p.r.n. -DVT prophylaxis, PT after surgery. #large hiatal hernia. - f/u surgery outpatient #left hepatic lobe, likely cyst Diet regular - NPO [place] DVT prophylaxis Lovenox GI prophylaxis Protonix IV daily Med surge Full code Plan discussed with: Patient My Orders Orders - LISA SUMMERS MD Procedure Category Date Status Time Pantoprazole PHA 04/08/24 In Process (Protonix) 10:00 Date of Service: Apr 08, 2024 Billing Provider: LISA SUMMERS MD Common Visit Codes: [id number] INP/OBS CARE(HIGH) LISA SUMMERS MD Apr 08, 2024 15:13
[2024-04-09] VITALS (9 sets, daily range): BP systolic 104–136; BP diastolic 64–82; PULSE 85–102; RESP 16–19; TEMP 97.7–98.8; O2SAT 84–99
[2024-04-09 07:59] LABS: Alanine Aminotransferase 16 U/L (7-40); Albumin 4.1 g/dL (3.2-4.8); Alkaline Phosphatase 104 U/L (46-116); Anion Gap 10 (5-15); Aspartate Aminotransferase 13 U/L (13-40); BUN/Creatinine Ratio 17.2 (10.0-20.0); Bilirubin, Total 0.5 mg/dL (0.2-1.0); Blood Urea Nitrogen 10 mg/dL (9-23); Calcium 9.4 mg/dL (8.7-10.4); Carbon Dioxide 24 mmol/L (20-31); Chloride 102 mmol/L (98-107); Glucose 105 mg/dL (74-106); Potassium 3.8 mmol/L (3.5-5.1); Sodium 136 mmol/L (136-145)
[2024-04-09 08:00] LABS: Total Protein 6.5 g/dL (5.7-8.2)
[2024-04-09 08:23] LABS: Basophils # (auto) 0.1 10 ^3/uL (0-0.2); Basophils % (auto) 0.9 % (0.0-2.0); Eosinophils # (auto) 0.1 10 ^3/uL (0-0.8); Eosinophils % (auto) 1.3 % (0.0-7.0); Hematocrit 32.5 % (36.0-46.0); Hemoglobin 10.1 g/dL (12.2-16.2); Lymphocytes # (auto) 0.8 10 ^3/uL (0.4-5.4); Lymphocytes % (auto) 11.2 % (10.0-50.0); Mean Corpuscular Hemoglobin 23.3 pg (28.0-32.0); Mean Corpuscular Hgb Conc. 31.2 g/dL (32.0-36.0); Mean Corpuscular Volume 74.7 fL (80.0-100.0); Monocytes % (auto) 12.9 % (0.0-12.0); Neutrophils # (auto) 5.6 10 ^3/uL (1.6-8.6); Neutrophils % (auto) 73.7 % (37.0-80.0); Platelet Count (auto) 287 10^3/uL (140-450); Red Blood Cells 4.35 10^6/uL (4.0-5.20); Red Cell Distribution Width 18.9 % (11.8-14.3); White Blood Cell 7.5 10^3/uL (4.4-10.8)
--- NOTE | 2024-04-09 10:20 | DVHPN2 ---
Subjective Complains of right hip pain Scheduled for surgery today Reviewed: H&P Changes from previous H/P or p: Changes General: Per HPI Objective Vitals Vital Signs Date Time Temp Pulse Resp B/P (MAP) Pulse Ox O2 Delivery O2 Flow Rate FiO2 04/09/24 09:53 86 16 128/82 04/09/24 08:56 97.9 97 97.9 04/08/24 20:00 Nasal Cannula* 2 28 Intake/Output Intake and Output 04/09/24 07:00 Intake Total 825 ml Output Total 1550 ml Balance -725 ml Intake Oral 775 ml IV Total 50 ml Output Urine Total 1550 ml General Appearance: Alert, Oriented X3, Cooperative, No acute distress Lungs: Clear to auscultation, Normal air movement Cardiovascular: Regular rate, Normal S1, Normal S2 Abdomen: Normal bowel sounds, Soft, No tenderness Extremities: No edema Medications Current Medications Medications Dose Ordered Sig/Gordon Route Start Time Stop Time Status Last Admin Dose Admin Ceftriaxone Sodium 50 ml @ 100 mls/hr DAILY@09 IV 04/07/24 09:00 04/09/24 09:37 100 MLS/HR Acetaminophen/ Hydrocodone Bitart 1 tab Q4HP PRN PO 04/06/24 20:30 04/08/24 12:46 1 TAB Ondansetron HCl 4 mg Q4HP PRN IV 04/06/24 20:30 04/07/24 03:51 4 MG Docusate Sodium 100 mg BIDPRN PRN PO 04/06/24 20:30 Enoxaparin Sodium 40 mg DAILY SC 04/07/24 10:00 04/09/24 09:37 40 MG Acetaminophen 650 mg Q6HP PRN PO 04/06/24 20:30 Morphine Sulfate 2 mg Q4HPRN PRN IV 04/06/24 20:30 04/09/24 09:53 2 MG Sodium Chloride 1,000 ml @ 75 mls/hr [id number] IV 04/06/24 20:30 04/09/24 06:07 75 MLS/HR Nitroglycerin 0.4 mg Q5MINP PRN SL 04/06/24 21:00 Morphine Sulfate 2 mg Q30M PRN IV 04/06/24 21:00 Pantoprazole Sodium 40 mg DAILY IV 04/08/24 10:00 04/09/24 09:37 40 MG Laboratory Results Laboratory Tests 04/09/24 06:35 Chemistry Test 04/09/24 06:35 Albumin 4.1 g/dL (3.2-4.8) Calcium Level 9.4 mg/dL (8.7-10.4) Total Protein 6.5 g/dL (5.7-8.2) LFT Test 04/09/24 06:35 Alanine Aminotransferase (ALT) 16 U/L (7-40) Alkaline Phosphatase 104 U/L (46-116) Aspartate Amino Transferase (AST) 13 U/L (13-40) Total Bilirubin 0.5 mg/dL (0.2-1.0) Urinalysis Test 04/06/24 16:36 Urine Color Yellow (Yellow) Urine Clarity Clear (Clear) Urine pH 6.0 (5.0-9.0) Urine Specific [place] 1.021 (1.001-1.035) Urine Protein Trace (Negative) H Urine Ketones Trace (Negative) Urine Blood Negative /uL (Negative) Urine Nitrite Negative (Negative) Urine Bilirubin Negative (Negative) Urine Urobilinogen Normal mg/dL (Negative) Urine Leukocyte Esterase Negative /uL (Negative) Urine RBC 2 /hpf (0 - 4) Urine WBC 3 /hpf (0 - 5) Urine Squamous Epithelial Cells Few /hpf (<5) Urine Bacteria None seen /hpf (None Seen) Urine Hyaline Casts Few /lpf (0 - 2) Urine Glucose Normal mg/dL (Normal) Assessment/Plan Assessment/Plan Right hip fracture GERD 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 Microcytic anemia , appears to be chronic Plan NPO Surgery today Pain control as needed Full code IV fluids She says she lives with her daughter at home She only takes omeprazole for her home medications Plan discussed with: Patient Date of Service: Apr 09, 2024 Billing Provider: RUDI JAIMES MD Common Visit Codes: NOT BILLABLE RUDI JAIMES MD Apr 09, 2024 10:20
[2024-04-09] MEDS ORDERED: fentaNYL CITRATE 100 MCG/2 ML VL ONE ×2 (13:08→14:17)
[2024-04-09] MEDS ORDERED: MEPERIDINE HCL (25 MG/ML) 1ML VIAL ONE (13:10)
--- NOTE | 2024-04-09 13:20 | DVHINCON2 ---
Date of service: Apr 08, 2024 Reason for Consultation Right hip fracture History of Present Illness 69 yo F sp fall and landed onto right side. Immediate pain/swelling/deformity to right leg. Unable to bear weight. No cp/sob/abd pain/nausea/vomiting/diarrhea. Allergies: Coded Allergies: NO KNOWN ALLERGIES (Unverified , 04/06/24) Home Meds Unable to Obtain Active Prescriptions or Reported Meds Vital Signs Vital Signs Date Time Temp Pulse Resp B/P (MAP) Pulse Ox O2 Delivery O2 Flow Rate FiO2 04/09/24 12:45 98.3 89 16 128/81 (97) 96 98.3 04/09/24 08:23 Nasal Cannula* 2 28 Labs/Diagnostic Data Labs Test 04/09/24 06:35 04/08/24 07:02 04/06/24 17:15 04/06/24 16:36 Range/Units White Blood Count 7.5 4.4-10.8 10^3/uL Red Blood Count 4.35 4.0-5.20 10^6/uL Hemoglobin 10.1 L 12.2-16.2 g/dL Hematocrit 32.5 L 36.0-46.0 % Mean Corpuscular Volume 74.7 L 80.0-100.0 fL Mean Corpuscular Hemoglobin 23.3 L 28.0-32.0 pg Mean Corpuscular Hemoglobin Concent 31.2 L 32.0-36.0 g/dL Red Cell Distribution Width 18.9 H 11.8-14.3 % Platelet Count 287 140-450 10^3/uL Mean Platelet Volume 7.0 6.9-10.8 fL Neutrophils (%) (Auto) 73.7 37.0-80.0 % Lymphocytes (%) (Auto) 11.2 10.0-50.0 % Monocytes (%) (Auto) 12.9 H 0.0-12.0 % Eosinophils (%) (Auto) 1.3 0.0-7.0 % Basophils (%) (Auto) 0.9 0.0-2.0 % Neutrophils # (Auto) 5.6 1.6-8.6 10 ^3/uL Lymphocytes # (Auto) 0.8 0.4-5.4 10 ^3/uL Monocytes # (Auto) 1.0 0-1.3 10 ^3/uL Eosinophils # (Auto) 0.1 0-0.8 10 ^3/uL Basophils # (Auto) 0.1 0-0.2 10 ^3/uL Nucleated Red Blood Cells 0.0 % Sodium Level 136 136-145 mmol/L Potassium Level 3.8 3.5-5.1 mmol/L Chloride Level 102 98-107 mmol/L Carbon Dioxide Level 24 20-31 mmol/L Anion Gap 10 5-15 Blood Urea Nitrogen 10 9-23 mg/dL Creatinine 0.58 0.550-1.02 mg/dL Glomerular Filtration Rate Calc 99 >90 mL/min BUN/Creatinine Ratio 17.2 10.0-20.0 Serum Glucose 105 74-106 mg/dL Calcium Level 9.4 8.7-10.4 mg/dL Total Bilirubin 0.5 0.2-1.0 mg/dL Aspartate Amino Transferase (AST) 13 13-40 U/L Alanine Aminotransferase (ALT) 16 7-40 U/L Alkaline Phosphatase 104 46-116 U/L Total Protein 6.5 5.7-8.2 g/dL Albumin 4.1 3.2-4.8 g/dL Creatine Kinase 112 34-145 U/L Prothrombin Time 10.8 9.3-11.8 sec Prothrombin Time INR 1.02 0.9-1.15 Urine Color Yellow Yellow Urine Clarity Clear Clear Urine pH 6.0 5.0-9.0 Urine Specific [place] 1.021 1.001-1.035 Urine Protein Trace H Negative Urine Ketones Trace Negative Urine Blood Negative Negative /uL Urine Nitrite Negative Negative Urine Bilirubin Negative Negative Urine Urobilinogen Normal Negative mg/dL Urine Leukocyte Esterase Negative Negative /uL Urine RBC 2 0 - 4 /hpf Urine WBC 3 0 - 5 /hpf Urine Squamous Epithelial Cells Few <5 /hpf Urine Bacteria None seen None Seen /hpf Urine Hyaline Casts Few 0 - 2 /lpf Urine Glucose Normal Normal mg/dL Plan/Recommendation 69 yo F sp fall with displaced right intertroch fracture 1. I had a long and thorough discussion with patient regarding condition. Questions for patient answered. Risks benefits options and alternatives reviewed in depth. Risks include but not exclusive to bleeding infection nerve injury hardware failure nonunion malunion chronic pain blood clots cardiac and pulmonary complications dislocation amputation and . Patient understands the risks and wishes to proceed with surgery. We discussed the nature of hip fractures in the elderly. 2. Plan for open reduction internal fixation of right hip fracture 3. NPO/IVF 4. pain control Plan discussed with: Patient DEVIN BRUNO MD Apr 09, 2024 13:20
[2024-04-09] MEDS ORDERED: ACETAMINOPHEN IV 1000 MG/100ML (10MG/ML) IV PRN (15:15)
[2024-04-09] MEDS ORDERED: MEPERIDINE HCL (25 MG/ML) 1ML VIAL IV PRN (15:15)
[2024-04-09] MEDS ORDERED: HYDROmorphone HCL 2 MG/ML VL/or syr IV PRN (15:15)
--- NOTE | 2024-04-09 15:20 | DVH ---
C-ARM FLUOROSCOPY: PROCEDURE: orif right hip FLUOROSCOPY TIME: 34.7 seconds DAP: 4.5 mgy FINDINGS: Spot intraoperative C arm radiographs demonstrating right hip orif. IMPRESSION: Please refer to surgical report for detailed findings.
[2024-04-09] MEDS: ceFAZolin 1GM/50ML 50 ML IV SCH (16:45)
[2024-04-09] MEDS: ceFAZolin 2 GM/D5W100ml 100 ML IV ONE (17:53)
[2024-04-09] MEDS: ROPIVACAINE 0.5% (5MG/ML) 20ML AMPULE IJ ONE (17:53)
[2024-04-09] MEDS: LIDOCAINE W/ EPINEPHRINE 1% 20ML VIAL ONE (17:54)
[2024-04-09] MEDS: ONDANSETRON HCL 4 MG/2 ML VIAL IV ONE (17:54)
[2024-04-10] VITALS (7 sets, daily range): BP systolic 102–148; BP diastolic 49–81; PULSE 90–99; RESP 17–19; TEMP 97.7–99.1; O2SAT 91–95
[2024-04-10 07:07] LABS: Basophils # (auto) 0 10 ^3/uL (0-0.2); Basophils % (auto) 0.3 % (0.0-2.0); Eosinophils # (auto) 0 10 ^3/uL (0-0.8); Hematocrit 30.9 % (36.0-46.0); Hemoglobin 9.9 g/dL (12.2-16.2); Lymphocytes # (auto) 0.7 10 ^3/uL (0.4-5.4); Lymphocytes % (auto) 8.2 % (10.0-50.0); Mean Corpuscular Hemoglobin 23.6 pg (28.0-32.0); Mean Corpuscular Volume 73.7 fL (80.0-100.0); Monocytes # (auto) 0.9 10 ^3/uL (0-1.3); Monocytes % (auto) 11.8 % (0.0-12.0); Neutrophils # (auto) 6.3 10 ^3/uL (1.6-8.6); Neutrophils % (auto) 79.7 % (37.0-80.0); Platelet Count (auto) 339 10^3/uL (140-450); Red Cell Distribution Width 18.6 % (11.8-14.3)
[2024-04-10 07:15] LABS: Alanine Aminotransferase 17 U/L (7-40); Albumin 3.9 g/dL (3.2-4.8); Alkaline Phosphatase 104 U/L (46-116); Anion Gap 8 (5-15); Aspartate Aminotransferase 14 U/L (13-40); BUN/Creatinine Ratio 25.9 (10.0-20.0); Blood Urea Nitrogen 15 mg/dL (9-23); Calcium 9.3 mg/dL (8.7-10.4); Carbon Dioxide 27 mmol/L (20-31); Chloride 102 mmol/L (98-107); Glucose 103 mg/dL (74-106); Magnesium 2.1 mg/dL (1.6-2.6); Potassium 4.6 mmol/L (3.5-5.1); Sodium 137 mmol/L (136-145)
[2024-04-10 07:16] LABS: Bilirubin, Total 0.4 mg/dL (0.2-1.0); Total Protein 5.8 g/dL (5.7-8.2)
--- NOTE | 2024-04-10 08:10 | DVHPN2 ---
Progress Note Date Seen: Apr 10, 2024 Medical Necessity Reason Pt with a Central, PICC or Fol: Yes Subjective Patient reports: No new complaints Objective vital signs Vital Sign Date Time Temp Pulse Resp B/P (MAP) Pulse Ox O2 Delivery O2 Flow Rate FiO2 04/10/24 07:43 Nasal Cannula* 2 28 04/10/24 05:12 96 18 146/81 04/10/24 05:00 97.8 93 97.8 Total Intake and Output 04/09/24 04/09/24 04/10/24 15:00 23:00 07:00 Intake Total 100 ml 350 ml 500 ml Output Total 400 ml 900 ml Balance 100 ml -50 ml -400 ml medications Current Medications Medications Dose Ordered Sig/Gordon Route Start Time Stop Time Status Last Admin Dose Admin Acetaminophen/ Hydrocodone Bitart 1 tab Q4HP PRN PO 04/06/24 20:30 04/09/24 21:10 1 TAB Ondansetron HCl 4 mg Q4HP PRN IV 04/06/24 20:30 04/07/24 03:51 4 MG Docusate Sodium 100 mg BIDPRN PRN PO 04/06/24 20:30 Enoxaparin Sodium 40 mg DAILY SC 04/07/24 10:00 04/09/24 09:37 40 MG Acetaminophen 650 mg Q6HP PRN PO 04/06/24 20:30 Morphine Sulfate 2 mg Q4HPRN PRN IV 04/06/24 20:30 04/10/24 04:42 2 MG Sodium Chloride 1,000 ml @ 75 mls/hr [id number] IV 04/06/24 20:30 04/10/24 01:24 75 MLS/HR Nitroglycerin 0.4 mg Q5MINP PRN SL 04/06/24 21:00 Morphine Sulfate 2 mg Q30M PRN IV 04/06/24 21:00 Pantoprazole Sodium 40 mg DAILY IV 04/08/24 10:00 04/09/24 09:37 40 MG Cefepime/Dextrose 50 ml @ 12.5 mls/hr Q12HR IV 04/10/24 10:00 Cefepime/Dextrose 50 ml @ 12.5 mls/hr Q12HR IV 04/10/24 10:00 UNV Examination: GENERAL:Normal, MSK:Abnormal laboratory and microbiology Laboratory Tests 04/10/24 04:57 Test 1/7/25 04:57 Range/Units Serum Glucose 103 74-106 mg/dL Problem List/Assessment/Plan Problem List/Assessment/Plan 69 year old female who is s/p Right hip ORIF POD 1 1. Pain control 2. WBAT RLE 3. Physical therapy 4. aquacel dressing to remain intact, no dressing changes needed 5. follow up 2 weeks at [facility] clinic for postop appointment and staple removal Plan discussed with: Patient Date of Service: Apr 10, 2024 Billing Provider: DEVIN BRUNO MD Common Visit Codes: NOT BILLABLE JORDY JOSEPH NP Apr 10, 2024 08:10
[2024-04-10] MEDS: CEFEPIME 2GM/50ML 50 ML IV SCH (09:20)
--- NOTE | 2024-04-10 09:36 | DVHPN2 ---
Subjective c/o right leg pain Reviewed: H&P Changes from previous H/P or p: Changes General: Per HPI Objective Vitals Vital Signs Date Time Temp Pulse Resp B/P (MAP) Pulse Ox O2 Delivery O2 Flow Rate FiO2 04/10/24 09:20 95 19 124/61 04/10/24 09:00 97.7 92 97.7 04/10/24 07:43 Nasal Cannula* 2 28 Intake/Output Intake and Output 04/10/24 07:00 Intake Total 950 ml Output Total 1300 ml Balance -350 ml Intake Oral 650 ml IV Total 300 ml Output Urine Total 1300 ml General Appearance: Alert, Oriented X3, Cooperative, No acute distress Lungs: Clear to auscultation, Normal air movement Cardiovascular: Regular rate, Normal S1, Normal S2 Abdomen: Normal bowel sounds, Soft, No tenderness Extremities: No edema Medications Current Medications Medications Dose Ordered Sig/Gordon Route Start Time Stop Time Status Last Admin Dose Admin Acetaminophen/ Hydrocodone Bitart 1 tab Q4HP PRN PO 04/06/24 20:30 04/09/24 21:10 1 TAB Ondansetron HCl 4 mg Q4HP PRN IV 04/06/24 20:30 04/07/24 03:51 4 MG Docusate Sodium 100 mg BIDPRN PRN PO 04/06/24 20:30 Enoxaparin Sodium 40 mg DAILY SC 04/07/24 10:00 04/10/24 09:18 40 MG Acetaminophen 650 mg Q6HP PRN PO 04/06/24 20:30 Morphine Sulfate 2 mg Q4HPRN PRN IV 04/06/24 20:30 04/10/24 09:20 2 MG Sodium Chloride 1,000 ml @ 75 mls/hr [id number] IV 04/06/24 20:30 04/10/24 01:24 75 MLS/HR Nitroglycerin 0.4 mg Q5MINP PRN SL 04/06/24 21:00 Morphine Sulfate 2 mg Q30M PRN IV 04/06/24 21:00 Pantoprazole Sodium 40 mg DAILY IV 04/08/24 10:00 04/10/24 09:18 40 MG Cefepime/Dextrose 50 ml @ 12.5 mls/hr Q12HR IV 04/10/24 10:00 04/10/24 09:20 12.5 MLS/HR Cefepime/Dextrose 50 ml @ 12.5 mls/hr Q12HR IV 04/10/24 10:00 UNV Laboratory Results Laboratory Tests 04/10/24 04:57 Chemistry Test 04/10/24 04:57 Albumin 3.9 g/dL (3.2-4.8) Calcium Level 9.3 mg/dL (8.7-10.4) Magnesium Level 2.1 mg/dL (1.6-2.6) Total Protein 5.8 g/dL (5.7-8.2) LFT Test 04/10/24 04:57 Alanine Aminotransferase (ALT) 17 U/L (7-40) Alkaline Phosphatase 104 U/L (46-116) Aspartate Amino Transferase (AST) 14 U/L (13-40) Total Bilirubin 0.4 mg/dL (0.2-1.0) Urinalysis Test 04/06/24 16:36 Urine Color Yellow (Yellow) Urine Clarity Clear (Clear) Urine pH 6.0 (5.0-9.0) Urine Specific [place] 1.021 (1.001-1.035) Urine Protein Trace (Negative) H Urine Ketones Trace (Negative) Urine Blood Negative /uL (Negative) Urine Nitrite Negative (Negative) Urine Bilirubin Negative (Negative) Urine Urobilinogen Normal mg/dL (Negative) Urine Leukocyte Esterase Negative /uL (Negative) Urine RBC 2 /hpf (0 - 4) Urine WBC 3 /hpf (0 - 5) Urine Squamous Epithelial Cells Few /hpf (<5) Urine Bacteria None seen /hpf (None Seen) Urine Hyaline Casts Few /lpf (0 - 2) Urine Glucose Normal mg/dL (Normal) Assessment/Plan Assessment/Plan Right hip fracture GERD 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 Microcytic anemia , appears to be chronic Plan 04/09/24: NPO Surgery today Pain control as needed Full code IV fluids She says she lives with her daughter at home She only takes omeprazole for her home medications 04/10/24: Physical therapy DC planning once PT is done Pain control Lovenox Protonix Plan discussed with: Patient Date of Service: Apr 10, 2024 Billing Provider: RUDI JAIMES MD Common Visit Codes: NOT BILLABLE RUDI JAIMES MD Apr 10, 2024 09:36
[2024-04-10] MEDS ORDERED: CEFEPIME 2GM/50ML 50 ML IV SCH (10:00)
[2024-04-10] MEDS: CYCLOBENZAPRINE HCL 10 MG TAB PO PRN (14:15)
[2024-04-11] VITALS (8 sets, daily range): BP systolic 112–121; BP diastolic 62–75; PULSE 81–108; RESP 17–20; TEMP 98–98.8; O2SAT 92–97
[2024-04-11 06:37] LABS: Basophils # (auto) 0.1 10 ^3/uL (0-0.2); Basophils % (auto) 0.9 % (0.0-2.0); Eosinophils # (auto) 0.3 10 ^3/uL (0-0.8); Mean Corpuscular Hemoglobin 23.5 pg (28.0-32.0); Monocytes # (auto) 0.9 10 ^3/uL (0-1.3); Neutrophils # (auto) 4.2 10 ^3/uL (1.6-8.6)
[2024-04-11 06:39] LABS: Eosinophils % (auto) 4.4 % (0.0-7.0); Hematocrit 29.2 % (36.0-46.0); Hemoglobin 9.3 g/dL (12.2-16.2); Lymphocytes # (auto) 1.3 10 ^3/uL (0.4-5.4); Mean Corpuscular Hgb Conc. 31.9 g/dL (32.0-36.0); Mean Corpuscular Volume 73.7 fL (80.0-100.0); Neutrophils % (auto) 62.7 % (37.0-80.0); Nucleated Red Blood Cells % 0.1 %; Platelet Count (auto) 304 10^3/uL (140-450); Red Blood Cells 3.97 10^6/uL (4.0-5.20); Red Cell Distribution Width 18.7 % (11.8-14.3); White Blood Cell 6.7 10^3/uL (4.4-10.8)
[2024-04-11 06:54] LABS: Alanine Aminotransferase 16 U/L (7-40); Alkaline Phosphatase 100 U/L (46-116)
[2024-04-11 06:55] LABS: Albumin 3.9 g/dL (3.2-4.8); Anion Gap 6 (5-15); Aspartate Aminotransferase 14 U/L (13-40); BUN/Creatinine Ratio 25.4 (10.0-20.0); Blood Urea Nitrogen 15 mg/dL (9-23); Carbon Dioxide 28 mmol/L (20-31); Chloride 103 mmol/L (98-107); Glucose 103 mg/dL (74-106); Magnesium 1.9 mg/dL (1.6-2.6); Potassium 3.8 mmol/L (3.5-5.1); Sodium 137 mmol/L (136-145)
[2024-04-11 06:56] LABS: Bilirubin, Total 0.5 mg/dL (0.2-1.0)
[2024-04-11 06:57] LABS: Calcium 8.5 mg/dL (8.7-10.4)
--- NOTE | 2024-04-11 11:59 | DVHPN2 ---
Subjective No new complaints Reviewed: H&P Changes from previous H/P or p: Changes General: Per HPI Objective Vitals Vital Signs Date Time Temp Pulse Resp B/P (MAP) Pulse Ox O2 Delivery O2 Flow Rate FiO2 04/11/24 09:33 89 17 112/75 04/11/24 09:00 98.2 92 98.2 04/10/24 20:00 Nasal Cannula* 2 28 Intake/Output Intake and Output 04/11/24 07:00 Intake Total 2300 ml Output Total 1450 ml Balance 850 ml Intake Oral 1800 ml IV Total 500 ml Output Urine Total 1450 ml General Appearance: Alert, Oriented X3, Cooperative, No acute distress Lungs: Clear to auscultation, Normal air movement Cardiovascular: Regular rate, Normal S1, Normal S2 Abdomen: Normal bowel sounds, Soft, No tenderness Extremities: No edema Medications Current Medications Medications Dose Ordered Sig/Gordon Route Start Time Stop Time Status Last Admin Dose Admin Acetaminophen/ Hydrocodone Bitart 1 tab Q4HP PRN PO 04/06/24 20:30 04/09/24 21:10 1 TAB Ondansetron HCl 4 mg Q4HP PRN IV 04/06/24 20:30 04/07/24 03:51 4 MG Docusate Sodium 100 mg BIDPRN PRN PO 04/06/24 20:30 Enoxaparin Sodium 40 mg DAILY SC 04/07/24 10:00 04/11/24 09:32 40 MG Acetaminophen 650 mg Q6HP PRN PO 04/06/24 20:30 Morphine Sulfate 2 mg Q4HPRN PRN IV 04/06/24 20:30 04/11/24 09:33 2 MG Nitroglycerin 0.4 mg Q5MINP PRN SL 04/06/24 21:00 Morphine Sulfate 2 mg Q30M PRN IV 04/06/24 21:00 Pantoprazole Sodium 40 mg DAILY IV 04/08/24 10:00 04/11/24 09:31 40 MG Cefepime/Dextrose 50 ml @ 12.5 mls/hr Q12HR IV 04/10/24 10:00 04/11/24 09:31 12.5 MLS/HR Cefepime/Dextrose 50 ml @ 12.5 mls/hr Q12HR IV 04/10/24 10:00 UNV Cyclobenzaprine HCl 5 mg Q8HPRN PRN PO 04/10/24 13:30 04/11/24 11:20 5 MG Laboratory Results Laboratory Tests 04/11/24 05:44 Chemistry Test 04/11/24 05:44 Albumin 3.9 g/dL (3.2-4.8) Calcium Level 8.5 mg/dL (8.7-10.4) L Magnesium Level 1.9 mg/dL (1.6-2.6) Total Protein 6.0 g/dL (5.7-8.2) LFT Test 04/11/24 05:44 Alanine Aminotransferase (ALT) 16 U/L (7-40) Alkaline Phosphatase 100 U/L (46-116) Aspartate Amino Transferase (AST) 14 U/L (13-40) Total Bilirubin 0.5 mg/dL (0.2-1.0) Urinalysis Test 04/06/24 16:36 Urine Color Yellow (Yellow) Urine Clarity Clear (Clear) Urine pH 6.0 (5.0-9.0) Urine Specific [place] 1.021 (1.001-1.035) Urine Protein Trace (Negative) H Urine Ketones Trace (Negative) Urine Blood Negative /uL (Negative) Urine Nitrite Negative (Negative) Urine Bilirubin Negative (Negative) Urine Urobilinogen Normal mg/dL (Negative) Urine Leukocyte Esterase Negative /uL (Negative) Urine RBC 2 /hpf (0 - 4) Urine WBC 3 /hpf (0 - 5) Urine Squamous Epithelial Cells Few /hpf (<5) Urine Bacteria None seen /hpf (None Seen) Urine Hyaline Casts Few /lpf (0 - 2) Urine Glucose Normal mg/dL (Normal) Assessment/Plan Assessment/Plan Right hip fracture GERD 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 Microcytic anemia , appears to be chronic Plan 04/09/24: NPO Surgery today Pain control as needed Full code IV fluids She says she lives with her daughter at home She only takes omeprazole for her home medications 04/10/24: Physical therapy DC planning once PT is done Pain control Lovenox Protonix 04/11/2024: Continue physical therapy Discharge planning to go to SNF Discharge once SNF bed is available Pain management Plan discussed with: Patient My Orders Orders - RUDI JAIMES MD Procedure Category Date Status Time Cyclobenzaprine PHA 04/10/24 In Process Tablet (Flexeril 13:30 * Mobile Device Engineer CONS 04/11/24 Transmitted Consult Discharge DISCHARGE 04/11/24 Transmitted 09:46 * Wound Consult CONS 04/11/24 Transmitted Date of Service: Apr 11, 2024 Billing Provider: RUDI JAIMES MD Common Visit Codes: NOT BILLABLE RUDI JAIMES MD Apr 11, 2024 11:59
[2024-04-11 14:25] LABS: Potassium 3.8 mmol/L (3.5-5.1)
[2024-04-11 14:32] LABS: Magnesium 2.1 mg/dL (1.6-2.6)
--- NOTE | 2024-04-11 14:35 | DVHPN2 ---
Consult Progress Note Date Seen: Apr 11, 2024 Subjective Other Systems: Notified of NSVT x 8 beats Objective vital signs Vital Sign Date Time Temp Pulse Resp B/P (MAP) Pulse Ox O2 Delivery O2 Flow Rate FiO2 04/11/24 14:23 103 16 108/63 04/11/24 12:01 98.0 93 98.0 04/11/24 08:00 Room Air* 0 21 Total Intake and Output 04/10/24 04/10/24 04/11/24 15:00 23:00 07:00 Intake Total 450 ml 1000 ml 850 ml Output Total 450 ml 1000 ml Balance 450 ml 550 ml -150 ml medications Current Medications Medications Dose Ordered Sig/Gordon Route Start Time Stop Time Status Last Admin Dose Admin Acetaminophen/ Hydrocodone Bitart 1 tab Q4HP PRN PO 04/06/24 20:30 04/09/24 21:10 1 TAB Ondansetron HCl 4 mg Q4HP PRN IV 04/06/24 20:30 04/07/24 03:51 4 MG Docusate Sodium 100 mg BIDPRN PRN PO 04/06/24 20:30 Enoxaparin Sodium 40 mg DAILY SC 04/07/24 10:00 04/11/24 09:32 40 MG Acetaminophen 650 mg Q6HP PRN PO 04/06/24 20:30 Morphine Sulfate 2 mg Q4HPRN PRN IV 04/06/24 20:30 04/11/24 14:23 2 MG Nitroglycerin 0.4 mg Q5MINP PRN SL 04/06/24 21:00 Morphine Sulfate 2 mg Q30M PRN IV 04/06/24 21:00 Pantoprazole Sodium 40 mg DAILY IV 04/08/24 10:00 04/11/24 09:31 40 MG Cefepime/Dextrose 50 ml @ 12.5 mls/hr Q12HR IV 04/10/24 10:00 04/11/24 09:31 12.5 MLS/HR Cefepime/Dextrose 50 ml @ 12.5 mls/hr Q12HR IV 04/10/24 10:00 UNV Cyclobenzaprine HCl 5 mg Q8HPRN PRN PO 04/10/24 13:30 04/11/24 11:20 5 MG Examination: LUNGS:Normal, CVS:Normal, NEURO:Normal laboratory and microbiology Laboratory Tests 04/11/24 13:33 04/11/24 05:44 Test 04/11/24 05:44 Range/Units Serum Glucose 103 74-106 mg/dL Problem List/Assessment/Plan Problem List/Assessment/Plan Preprocedural cardiovascular examination Acute severely comminuted right hip intertrochanteric fracture Non-sustained ventricular tachycardia History of CVA without residual deficit GERD Plan/Recommendation (Dr. Bills) Notified of non-sustained ventricular tachycardia, asymptomatic. The patient underwent a transthoracic echocardiogram revealing normal left ventricle size with an EF 55-60% and normal wall motion. Chest x-ray shows no active cardiopulmonary disease. Cardiac symptoms have been ruled out. There is no underlying history of congestive heart failure, coronary artery disease, or equivalent of cardiac symptoms. Replete electrolytes, K>4 and Mg>2. Outpatient event monitor. There is no additional cardiac workup indicated prior to surgery. Kindly call if in need to re-consult. Thank you for allowing us to care for this patient. This medical document was created using an electronic medical record system with voice recognition software and computerized dictation system. Although this document has been carefully reviewed, there might still be some phonetic and typographical errors. Occasional wrong-word or ``sound-alike substitutions may have occurred due to the inherent limitations of voice recognition software. These areas are purely typographical due to imperfections of the software programs and do not reflect any compromise in the patient's medical care. Please read the chart carefully and recognize, using context, where these substitutions have occurred. Plan discussed with: Other Dietary Evaluation Review Comments: Continue current plan of care Expected Outcomes/Goals: F/U in 5-7days Date of Service: Apr 11, 2024 Billing Provider: CRISTOPHER BILLS MD Cardiology Common Codes: [id number] [facility] CARESRIDEVI Randhawa [facility] Apr 11, 2024 14:35
--- NOTE | 2024-04-11 15:56 | DVHOP2 ---
Operative Report - 2 Report Details Date: 04/09/24 Preop Diagnosis: Comminuted right hip intertrochanter fracture Postop Diagnosis: as above Surgeon: Tian Hines MD Environment Friendly Landscape Designer: Vasiliy LEMA Anesthesiologist: Bob CORONADO Anesthesia: Regional Implant: AOS Short troch nail Consent: The patient was informed of the risks and benefits of the procedure. These include but are not limited to complications of anesthesia, postoperative infection, incomplete relief of symptoms, recurrence of symptoms, damage to blood vessels, nerves and tendons, deep venous thrombosis, pulmonary embolism and possible need for repeat surgery in the future. Estimated Blood Loss: 50 cc Name of Procedure Performed 1. Open reduction internal fixation of right hip fracture; 2. INtraop fluoro Procedure Details Procedure Details: FINDINGS: IT fracture, reduced on the fracture table. DESCRIPTION OF PROCEDURE: In the preoperative holding area, the consent was reviewed and the appropriate extremity was verified by the patient and marked with my initials. The patient was then transferred to the operating theatre. Patient was placed on a fracture table. Appropriate anesthetia was induced. All bony prominences were well padded. A time out was performed verifying the side and site of surgery according to standard protocol. Preoperative antibiotics were given. The extremity was then prepped and draped in the usual sterile fashion. Using c-arm, the fracture was reduced using the fracture table and a combination of maneuvers including traction, internal rotation, and flexion. An incision was made over the greater trochanter confirming correct position with c-arm. A guide wire was drilled into the tip of the greater trochanter, centered A to P. We used the starting reamer to gain entry to the femoral canal. A short nail was then placed. A guide pin was then drilled in the center of the femoral head confirmed using fluoroscopy. We measured the screw lengths. Using a cannulated drill, we drilled the lateral cortex. The screws were then introduced. Once positioned, we once again confirmed that the screws were with the femoral head. cerament placed into fracture site. Attention was turned distally. We used the targeting device to drill through the nail and the femur. This was measured using the device, and the screw was placed with good purchase. Final xrays were taken showing the hardware in perfect position. The wound was copiously irrigated. No fractures were seen on the re st of the femur. The fascia was closed with #1 Vicryl, the skin closed #2-0 Vicryl, and mark. A dry sterile dressing was placed on the patient. The patient was transferred to the recovery room in stable condition. Condition Good Disposition Still a Patient TIAN HINES MD Apr 11, 2024 15:56
[2024-04-11] MEDS: POTASSIUM CHL 20 Meq TABLET PO ONE (17:43)
[2024-04-11] MEDS: MAGNESIUM OXIDE 400 MG TAB PO ONE (17:43)
[2024-04-12] VITALS (8 sets, daily range): BP systolic 110–125; BP diastolic 60–90; PULSE 77–98; RESP 17–19; TEMP 97.8–98.2; O2SAT 90–100
--- NOTE | 2024-04-12 09:46 | DVHDS2 ---
Discharge Summary Date of Admission Apr 06, 2024 at 20:54 Date of Discharge: Apr 12, 2024 Labs/Diagnostic Data: Laboratory Results Test 04/11/24 13:33 04/11/24 05:44 04/08/24 07:02 04/06/24 17:15 Potassium Level 3.8 mmol/L (3.5-5.1) Magnesium Level 2.1 mg/dL (1.6-2.6) White Blood Count 6.7 10^3/uL (4.4-10.8) Red Blood Count 3.97 10^6/uL (4.0-5.20) Hemoglobin 9.3 g/dL (12.2-16.2) Hematocrit 29.2 % (36.0-46.0) Mean Corpuscular Volume 73.7 fL (80.0-100.0) Mean Corpuscular Hemoglobin 23.5 pg (28.0-32.0) Mean Corpuscular Hemoglobin Concent 31.9 g/dL (32.0-36.0) Red Cell Distribution Width 18.7 % (11.8-14.3) Platelet Count 304 10^3/uL (140-450) Mean Platelet Volume 7.1 fL (6.9-10.8) Neutrophils (%) (Auto) 62.7 % (37.0-80.0) Lymphocytes (%) (Auto) 19.0 % (10.0-50.0) Monocytes (%) (Auto) 13.0 % (0.0-12.0) Eosinophils (%) (Auto) 4.4 % (0.0-7.0) Basophils (%) (Auto) 0.9 % (0.0-2.0) Neutrophils # (Auto) 4.2 10 ^3/uL (1.6-8.6) Lymphocytes # (Auto) 1.3 10 ^3/uL (0.4-5.4) Monocytes # (Auto) 0.9 10 ^3/uL (0-1.3) Eosinophils # (Auto) 0.3 10 ^3/uL (0-0.8) Basophils # (Auto) 0.1 10 ^3/uL (0-0.2) Nucleated Red Blood Cells 0.1 % Sodium Level 137 mmol/L (136-145) Chloride Level 103 mmol/L (98-107) Carbon Dioxide Level 28 mmol/L (20-31) Anion Gap 6 (5-15) Blood Urea Nitrogen 15 mg/dL (9-23) Creatinine 0.59 mg/dL (0.550-1.02) Glomerular Filtration Rate Calc 99 mL/min (>90) BUN/Creatinine Ratio 25.4 (10.0-20.0) Serum Glucose 103 mg/dL (74-106) Calcium Level 8.5 mg/dL (8.7-10.4) Total Bilirubin 0.5 mg/dL (0.2-1.0) Aspartate Amino Transferase (AST) 14 U/L (13-40) Alanine Aminotransferase (ALT) 16 U/L (7-40) Alkaline Phosphatase 100 U/L (46-116) Total Protein 6.0 g/dL (5.7-8.2) Albumin 3.9 g/dL (3.2-4.8) Creatine Kinase 112 U/L (34-145) Prothrombin Time 10.8 sec (9.3-11.8) Prothrombin Time INR 1.02 (0.9-1.15) Test 04/06/24 16:36 Urine Color Yellow (Yellow) Urine Clarity Clear (Clear) Urine pH 6.0 (5.0-9.0) Urine Specific [place] 1.021 (1.001-1.035) Urine Protein Trace (Negative) Urine Ketones Trace (Negative) Urine Blood Negative /uL (Negative) Urine Nitrite Negative (Negative) Urine Bilirubin Negative (Negative) Urine Urobilinogen Normal mg/dL (Negative) Urine Leukocyte Esterase Negative /uL (Negative) Urine RBC 2 /hpf (0 - 4) Urine WBC 3 /hpf (0 - 5) Urine Squamous Epithelial Cells Few /hpf (<5) Urine Bacteria None seen /hpf (None Seen) Urine Hyaline Casts Few /lpf (0 - 2) Urine Glucose Normal mg/dL (Normal) Other Laboratory Tests 04/11/24 13:33 04/11/24 05:44 Brief Hx & Hospital Course: Final diagnoses: Right hip fracture status post ORIF GERD 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 Microcytic anemia , appears to be chronic 69-year-old female was admitted after a mechanical fall at home when she tripped on her dog which resulted in the right hip fracture and she underwent surgery successfully with no complications She is doing well now She is supposed to go to rehab for physical therapy once a bed is available Condition at Discharge: Stable Final Diagnosis/Problems List Right hip fracture status post ORIF GERD 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 Patient was counseled about treatment plan, medications, possible side effects, patientverbalized understanding. All questions were answered to the best of my ability. This discharge took greater then 30 minutes in planning, reviewing documentation, counseling the patient, and discussing with other team members." ASSESSMENT ASSESSMENT Assessment as above Date of Service: Apr 12, 2024 Billing Provider: RUDI JAIMES MD Common Visit Codes: NOT BILLABLE RUDI JAIMES MD Apr 12, 2024 09:46
[2024-04-13 01:00] VITALS: BP 107/64; PULSE 75; RESP 16; TEMP 97.5; O2SAT 95
[2024-04-13 05:00] VITALS: BP 128/70; PULSE 89; RESP 16; TEMP 97.9; O2SAT 100
[2024-04-13 08:00] VITALS: BP 119/80; PULSE 76; PULSE 87; RESP 14; TEMP 98.4; O2SAT 98
--- NOTE | 2024-04-13 10:28 | DVHPN2 ---
Subjective Constipated Reviewed: H&P Changes from previous H/P or p: Changes General: Per HPI Objective Vitals Vital Signs Date Time Temp Pulse Resp B/P (MAP) Pulse Ox O2 Delivery O2 Flow Rate FiO2 04/13/24 08:55 87 14 119/80 04/13/24 08:00 98.4 98 98.4 04/12/24 20:00 Room Air* 0 21 Intake/Output Intake and Output 04/13/24 07:00 Intake Total 1178 ml Output Total 803 ml Balance 375 ml Intake Oral 1128 ml IV Total 50 ml Output Urine Total 803 ml General Appearance: Alert, Oriented X3, Cooperative, No acute distress Lungs: Clear to auscultation, Normal air movement Cardiovascular: Regular rate, Normal S1, Normal S2 Abdomen: Normal bowel sounds, Soft, No tenderness Extremities: No edema Medications Current Medications Medications Dose Ordered Sig/Gordon Route Start Time Stop Time Status Last Admin Dose Admin Acetaminophen/ Hydrocodone Bitart 1 tab Q4HP PRN PO 04/06/24 20:30 04/13/24 04:18 1 TAB Ondansetron HCl 4 mg Q4HP PRN IV 04/06/24 20:30 04/07/24 03:51 4 MG Docusate Sodium 100 mg BIDPRN PRN PO 04/06/24 20:30 Enoxaparin Sodium 40 mg DAILY SC 04/07/24 10:00 04/13/24 08:54 40 MG Acetaminophen 650 mg Q6HP PRN PO 04/06/24 20:30 Morphine Sulfate 2 mg Q4HPRN PRN IV 04/06/24 20:30 04/13/24 08:55 2 MG Nitroglycerin 0.4 mg Q5MINP PRN SL 04/06/24 21:00 Morphine Sulfate 2 mg Q30M PRN IV 04/06/24 21:00 Pantoprazole Sodium 40 mg DAILY IV 04/08/24 10:00 04/13/24 08:54 40 MG Cefepime/Dextrose 50 ml @ 12.5 mls/hr Q12HR IV 04/10/24 10:00 04/13/24 08:55 12.5 MLS/HR Cefepime/Dextrose 50 ml @ 12.5 mls/hr Q12HR IV 04/10/24 10:00 UNV Cyclobenzaprine HCl 5 mg Q8HPRN PRN PO 04/10/24 13:30 04/12/24 16:41 5 MG Laboratory Results Laboratory Tests 04/11/24 05:44 04/11/24 13:33 Urinalysis Test 04/06/24 16:36 Urine Color Yellow (Yellow) Urine Clarity Clear (Clear) Urine pH 6.0 (5.0-9.0) Urine Specific [place] 1.021 (1.001-1.035) Urine Protein Trace (Negative) H Urine Ketones Trace (Negative) Urine Blood Negative /uL (Negative) Urine Nitrite Negative (Negative) Urine Bilirubin Negative (Negative) Urine Urobilinogen Normal mg/dL (Negative) Urine Leukocyte Esterase Negative /uL (Negative) Urine RBC 2 /hpf (0 - 4) Urine WBC 3 /hpf (0 - 5) Urine Squamous Epithelial Cells Few /hpf (<5) Urine Bacteria None seen /hpf (None Seen) Urine Hyaline Casts Few /lpf (0 - 2) Urine Glucose Normal mg/dL (Normal) Assessment/Plan Assessment/Plan Right hip fracture GERD 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 Microcytic anemia , appears to be chronic Constipation Plan 04/09/24: NPO Surgery today Pain control as needed Full code IV fluids She says she lives with her daughter at home She only takes omeprazole for her home medications 04/10/24: Physical therapy DC planning once PT is done Pain control Lovenox Protonix 04/11/2024: Continue physical therapy Discharge planning to go to SNF Discharge once SNF bed is available Pain management 04/13/24: Constipation: Colace and Lactulose DC to SNF for rehab Plan discussed with: Patient Date of Service: Apr 13, 2024 Billing Provider: RUDI JAIMES MD Common Visit Codes: NOT BILLABLE RUDI JAIMES MD Apr 13, 2024 10:28
[2024-04-13 12:21] VITALS: BP 119/80; PULSE 87; RESP 14; TEMP 98.4; O2SAT 98
[2024-04-13] MEDS ORDERED: DOCUSATE SOD 100 MG CAP PO ONE (13:00)
[2024-04-13] MEDS ORDERED: LACTULOSE 20Gm/30ML SOLN PO ONE (13:00)
[2024-04-13 13:30] VITALS: BP 115/74; PULSE 83; RESP 16; TEMP 97.5; O2SAT 93
[2024-04-13] MEDS ORDERED: LACTULOSE 20Gm/30ML SOLN PO SCH (22:00)
[2024-04-13] MEDS ORDERED: DOCUSATE SOD 100 MG CAP PO SCH (22:00)
== END 2024-04-13 13:30 | DRG 481 ==
LOC: ER 12:35 → EDBD 12:35 → TELE 20:54 → TELE-WESTW 23:52
PROVIDERS: ADMIT Internal Medicine Geriatric Medicine; ATTEND Internal Medicine Geriatric Medicine
PROC: 0QS604Z Reposition Right Upper Femur with Internal Fixation Device, Open Approach (ICD-10-PCS; principal; 2024-04-09 13:42)
DX: S72.141A Displaced intertrochanteric fracture of right femur, initial encounter for closed fracture (principal); M48.55XA Collapsed vertebra, not elsewhere classified, thoracolumbar region, initial encounter for fracture; D50.9 Iron deficiency anemia, unspecified; D72.829 Elevated white blood cell count, unspecified; K21.9 Gastro-esophageal reflux disease without esophagitis; K59.00 Constipation, unspecified; K44.9 Diaphragmatic hernia without obstruction or gangrene; W01.0XXA Fall on same level from slipping, tripping and stumbling without subsequent striking against object, initial encounter; Z86.73 Personal history of transient ischemic attack (TIA), and cerebral infarction without residual deficits; Z87.442 Personal history of urinary calculi; Y93.89 Activity, other specified; Y99.8 Other external cause status; Y92.009 Unspecified place in unspecified non-institutional (private) residence as the place of occurrence of the external cause
CPT/HCPCS: 36415; 71045; 73501; 74176; 76000; 80053; 81001; 82550; 83735; 84132; 85025; 85610; 86850; 86900; 86901; 93005; 93306; 97110; 97116; 97163; 97530; C1713; G0378; J0131; J2405; J2470